=== PATIENT | male | born 1965 | race Caucasian/White ===

== ENCOUNTER 2021-08-13 14:30 | Outpatient (RCR) | payer OTHER, SELFPAY ==
--- NOTE | 2021-05-29 09:45 | PT.OPPOC ---
Physical, Occupational & Speech Therapy At [facility] Current Diagnoses Dizziness and giddiness (05/29/21) Visit Care Team Role Provider Type Omari White MD Family Provider Physician Primary Care Provider Specialty: Internal Medicine Address: [address] [place] [address], [id number] Email: [email or web address] Gustavo Johnson MD Attending Provider Physician Referring Provider Specialty: Ear, Nose, Throat Address: [address] [place] [address], [id number] Email: [email or web address] Plan Of Care PT-OP-T Assessment and Plan Start: 05/29/21 14:47 Freq: Status: Active Protocol: Document 05/29/21 09:00 DCW (Rec: 06/01/21 11:38 DCW [id number]) Physical Therapy Assessment Rehab Potential Rehabilitation Potential Fair Evaluation Complexity Number of Personal Factors/Comorbidities 1-2 Number of Body Systems Impaired 3 Clinical Presentation at Evaluation Unstable Impairments Impairments Balance,Vestibular,Visual Motor Goals Three Impairment Pt demonstrates a 6 line degradation during DVA Chcf Goal (LTG) Pt to show a line degradation during DVA testing of less than 4 lines LTG Duration 07/29/21 Two Impairment Pt does not have an appropriate home exercise program Short Term Goal (STG) Pt to report independence and compliance with an appropriate vestibular HEP STG Duration 06/29/21 One Impairment Pt complains of constant instability/visual motion sensitivity Flatlock Sewing Machine Operator Goal (LTG) Pt to report reduction in symptoms by 50% with usual daily activities LTG Duration 07/29/21 Assessment Summary Assessment Pt presents with a very unusual vestibular evaluation. Pt displays evidence of a mild right-sided vestibular loss, which is echoed in the results of his prior VNG from 2017. Additionally, he has a fairly large 6 line degradation during DVA testing , but these are largely his only positive tests. Neither of these would offer a satisfactory explanation of his complaints of constant imbalance/vertigo/visual motion. Pt will be receiving a new VNG prior to his return to vestibular rehab, which may help shed light on some increased deficiencies. Additionally, pt did note he was having a particularly low- symptom day at his evaluation, so further testing on a different day may have the potential to uncover different results. Due to pt's unilateral loss and 6 line degradation during DVA testing , pt will likely still benefit from some vestibular rehabilitation and VOR retraining. Physical Therapy Plan Frequency and Duration Frequency of Treatment 1-2x/wk Duration of Treatment Two months Plan of Care Start Date 06/01/21 Plan of Care End Date 08/01/21 Therapeutic Interventions Therapeutic Interventions Balance Training,Canalithic Repositioning,Coordination Training,Home Exercise Program ,Manual Therapy,Neuromuscular Re-education,Patient/Caregiver Education,Self-Care/Home Management,Therapeutic Exercises,Vestibular Rehabilitation Next Visit Focus/Plan Next Note Type Treatment Note Next Visit Plan Vestibular rehab, VOR/X1/X2 exercises, occulomotor training Plan of Care Dates Plan of Care Start Date 06/01/21 Plan of Care End Date 08/01/21 Electronically Signed by: Salvador Richards, PT 06/01/21 [id number] Please Sign and Return: I have reviewed this Plan of Care and certify that the skilled therapy services above are required to meet the patient?s needs. Physician Signature Date Printed Name and Credentials Clinical Instructor Signature Printed Name and Credentials
--- NOTE | 2021-05-29 09:45 | PT.OIE ---
Current Diagnoses Dizziness and giddiness (05/29/21) Visit Care Team Role Provider Type Omari White MD Family Provider Physician Primary Care Provider Specialty: Internal Medicine Address: [address] [place] [address], [id number] Email: [email or web address] Gustavo Johnson MD Attending Provider Physician Referring Provider Specialty: Ear, Nose, Throat Address: [address] [place] [address], [address] Email: [email or web address] Physical Therapy Initial Evaluation PT-OP-A Visit Information Start: 05/29/21 14:47 Freq: Status: Active Protocol: Document 05/29/21 09:00 DCW (Rec: 05/29/21 15:00 DCW [id number]) Out-Patient Physical Therapy Visit Information Visit Information Visit Type Initial Evaluation Visit Start Time 09:00 Visit Stop Time 09:50 Total Visit Minutes 50 Visit Number 1 Number of APPAREL RENTAL CLERK Visits 0 Evaluation Information Evaluation Date 05/29/21 PT-OP-B Current Condition Start: 05/29/21 14:47 Freq: Status: Active Protocol: Document 05/29/21 09:00 DCW (Rec: 05/29/21 15:00 DCW [id number]) Current Condition History of Current Condition Onset Date five year history Current Complaints constant, sustained vertigo/ imbalance History of Current Condition Pt is a 55 year old male with an unusual five year history of vestibular symptoms. Pt reports that he has just been experiencing a low-level of things moving in his vision, was diagnosed with chronic sinusitis, had surgery to clear out his sinuses in 2017, his symptoms improved but never resolved, and now over the past seven months, he has been experiencing worsening of his symptoms. Pt notes he saw a neurologist, who though he may have vertiginous migraine , gave him a lot of different meds, none of which seemed to help. Pt is also planning to undergo a VNG next week. Pt had a VNG in 2017, which showed possible mild right vestibular loss. Pt notes his severity varies, but it is always present. Admits it is a 1/10 today, but is typically more like a 4-5/10. Pt reports that over the last five years , he has only had complete relief twice, both times when skiing at higher altitude, however he has been skiing additional times with no relief. Pt reports he has not found anything that consistently improves or worsens his symptoms. Pt does note mild tinnitus in his left ear, and a recent audiogram ( 03/30/21) showed left isolated mild high-frequency sensorineural hearing loss PT-OP-C Subjective Start: 05/29/21 14:47 Freq: Status: Active Protocol: Document 05/29/21 09:00 DCW (Rec: 05/29/21 15:12 DCW [id number]) OP-PT Subjective Patient Comments Patient Comments Pt notes he can typically get through his day, his symptoms just really wear him out. Patient Questionnaires Dizziness Handicap Inventory DHI Score 68% DHI Functional Impairment 60 to 79% Impaired (Score 60- 79) PT-OP-D Balance Start: 05/29/21 14:47 Freq: Status: Active Protocol: Document 05/29/21 09:00 DCW (Rec: 05/29/21 15:12 DCW [id number]) OP-PT Balance Assessment Sitting Balance Static Sitting Balance Ability Normal Dynamic Sitting Balance Ability Normal Standing Balance Static Standing Balance Ability Normal Dynamic Standing Balance Ability Normal Balance Tests CTSIB CTSIB Position 1 30+, slight sway CTSIB Position 2 30+, mild sway CTSIB Position 3 30+, mild sway CTSIB Position 4 30+, slight sway CTSIB Position 5 30+, mild sway CTSIB Position 6 30+, moderate sway Esquivel Fall Scale Copyright Permission PT-OP-O Vestibular Start: 05/29/21 14:47 Freq: Status: Active Protocol: Document 05/29/21 09:00 DCW (Rec: 05/29/21 15:12 DCW [id number]) Vestibular Assessment Screening Tests Vestibular Artery Screen Negative Auditory Tests Vera Test Within normal limits Rinne Test Negative Air Conduction Results Equal Visual Testing Smooth Pursuits Horizontal WNL Smooth Pursuits Vertical WNL Saccades Horizontal WNL Saccades Vertical WNL Gaze Evoked Nystagmus With Fixation Negative Gaze Evoked Nystagmus Without Fixation Negative Heave Test Positive Right Thrust Head Positive Right Satish String Test WNL Convergence Test WNL DVA (Line Degradation) 6 Vasalva Test Negative Positional Testing Kari-Hallpike Negative Left,Negative Right Rolling Test Negative Left,Negative Right PT-OP-T Assessment and Plan Start: 05/29/21 14:47 Freq: Status: Active Protocol: Document 05/29/21 09:00 DCW (Rec: 06/01/21 11:38 DC [id number]) Physical Therapy Assessment Rehab Potential Rehabilitation Potential Fair Evaluation Complexity Number of Personal Factors/Comorbidities 1-2 Number of Body Systems Impaired 3 Clinical Presentation at Evaluation Unstable Impairments Impairments Balance,Vestibular,Visual Motor Goals Three Impairment Pt demonstrates a 6 line degradation during DVA Senior Care Goal (LTG) Pt to show a line degradation during DVA testing of less than 4 lines LTG Duration 07/29/21 Two Impairment Pt does not have an appropriate home exercise program Short Term Goal (STG) Pt to report independence and compliance with an appropriate vestibular HEP STG Duration 06/29/21 One Impairment Pt complains of constant instability/visual motion sensitivity Darkroom Technician Goal (LTG) Pt to report reduction in symptoms by 50% with usual daily activities LTG Duration 07/29/21 Assessment Summary Assessment Pt presents with a very unusual vestibular evaluation. Pt displays evidence of a mild right-sided vestibular loss, which is echoed in the results of his prior VNG from 2017. Additionally, he has a fairly large 6 line degradation during DVA testing , but these are largely his only positive tests. Neither of these would offer a satisfactory explanation of his complaints of constant imbalance/vertigo/visual motion. Pt will be receiving a new VNG prior to his return to vestibular rehab, which may help shed light on some increased deficiencies. Additionally, pt did note he was having a particularly low- symptom day at his evaluation, so further testing on a different day may have the potential to uncover different results. Due to pt's unilateral loss and 6 line degradation during DVA testing , pt will likely still benefit from some vestibular rehabilitation and VOR retraining. Physical Therapy Plan Frequency and Duration Frequency of Treatment 1-2x/wk Duration of Treatment Two months Plan of Care Start Date 06/01/21 Plan of Care End Date 08/01/21 Therapeutic Interventions Therapeutic Interventions Balance Training,Canalithic Repositioning,Coordination Training,Home Exercise Program ,Manual Therapy,Neuromuscular Re-education,Patient/Caregiver Education,Self-Care/Home Management,Therapeutic Exercises,Vestibular Rehabilitation Next Visit Focus/Plan Next Note Type Treatment Note Next Visit Plan Vestibular rehab, VOR/X1/X2 exercises, occulomotor training
--- NOTE | 2021-06-26 13:20 | PT.OTN ---
Current Diagnoses Dizziness and giddiness (06/26/21) Physical Therapy Treatment Note PT-OP-A Visit Information Start: 05/29/21 14:47 Freq: Status: Active Protocol: Document 06/26/21 10:30 AMB (Rec: 06/26/21 11:42 AMB [id number]) Out-Patient Physical Therapy Visit Information Visit Information Visit Type Treatment Note Visit Start Time 10:30 Visit Stop Time 11:15 Total Visit Minutes 45 Visit Number 2 PT-OP-B Current Condition Start: 05/29/21 14:47 Freq: Status: Active Protocol: Document 05/29/21 09:00 DCW (Rec: 05/29/21 15:00 DCW [id number]) Current Condition History of Current Condition Onset Date five year history Current Complaints constant, sustained vertigo/ imbalance History of Current Condition Pt is a 55 year old male with an unusual five year history of vestibular symptoms. Pt reports that he has just been experiencing a low-level of things moving in his vision, was diagnosed with chronic sinusitis, had surgery to clear out his sinuses in 2017, his symptoms improved but never resolved, and now over the past seven months, he has been experiencing worsening of his symptoms. Pt notes he saw a neurologist, who though he may have vertiginous migraine, gave him a lot of different meds, none of which seemed to help. Pt is also planning to undergo a VNG next week. Pt had a VNG in 2017, which showed possible mild right vestibular loss. Pt notes his severity varies, but it is always present. Admits it is a 1/10 today, but is typically more like a 4-5/10. Pt reports that over the last five years , he has only had complete relief twice, both times when skiing at higher altitude, however he has been skiing additional times with no relief. Pt reports he has not found anything that consistently improves or worsens his symptoms. Pt does note mild tinnitus in his left ear, and a recent audiogram ( 03/30/21) showed left isolated mild high-frequency sensorineural hearing loss PT-OP-C Subjective Start: 05/29/21 14:47 Freq: Status: Active Protocol: Document 06/26/21 10:30 AMB (Rec: 06/26/21 13:19 AMB [id number]) OP-PT Subjective Patient Comments Patient Comments Pt returns s/p new VNG showing 83% right unilateral weakness . PT-OP-D Balance Start: 05/29/21 14:47 Freq: Status: Active Protocol: Document 05/29/21 09:00 DCW (Rec: 05/29/21 15:12 DCW [id number]) OP-PT Balance Assessment Sitting Balance Static Sitting Balance Ability Normal Dynamic Sitting Balance Ability Normal Standing Balance Static Standing Balance Ability Normal Dynamic Standing Balance Ability Normal Balance Tests CTSIB CTSIB Position 1 30+, slight sway CTSIB Position 2 30+, mild sway CTSIB Position 3 30+, mild sway CTSIB Position 4 30+, slight sway CTSIB Position 5 30+, mild sway CTSIB Position 6 30+, moderate sway Esquivel Fall Scale Copyright Permission PT-OP-O Vestibular Start: 05/29/21 14:47 Freq: Status: Active Protocol: Document 05/29/21 09:00 DCW (Rec: 05/29/21 15:12 DCW [id number]) Vestibular Assessment Screening Tests Vestibular Artery Screen Negative Auditory Tests Vera Test Within normal limits Rinne Test Negative Air Conduction Results Equal Visual Testing Smooth Pursuits Horizontal WNL Smooth Pursuits Vertical WNL Saccades Horizontal WNL Saccades Vertical WNL Gaze Evoked Nystagmus With Fixation Negative Gaze Evoked Nystagmus Without Fixation Negative Heave Test Positive Right Thrust Head Positive Right Satish String Test WNL Convergence Test WNL DVA (Line Degradation) 6 Vasalva Test Negative Positional Testing Kari-Hallpike Negative Left,Negative Right Rolling Test Negative Left,Negative Right PT-OP-Q Treatments Start: 05/29/21 14:47 Freq: Status: Active Protocol: Document 06/26/21 10:30 AMB (Rec: 06/26/21 13:19 AMB [id number]) Neuro Re-Education Treatment Vestibular Rehabilitation X2 Viewing Details horizontal only Background plain Distance From Target arm length Speed slow Reps/Duration 1'x2 X1 Viewing Details horizontal and then vertical ( faster) Background plain Distance From Target 5' Speed 38 bpm Reps/Duration 1'x3 Comments hip width stance Other Activities walking with head turns Details horizontal and vertical Comments pt able to complete but feels sx, no severe veering noted PT-OP-T Assessment and Plan Start: 05/29/21 14:47 Freq: Status: Active Protocol: Document 06/26/21 10:30 AMB (Rec: 04/22/22 13:19 AMB [id number]) Physical Therapy Assessment Goals Three Impairment Pt demonstrates a 6 line degradation during DVA Circuit Judge Goal (LTG) Pt to show a line degradation during DVA testing of less than 4 lines LTG Duration 07/29/21 Two Impairment Pt does not have an appropriate home exercise program Short Term Goal (STG) Pt to report independence and compliance with an appropriate vestibular HEP STG Duration 06/29/21 One Impairment Pt complains of constant instability/visual motion sensitivity Circuit Judge Goal (LTG) Pt to report reduction in symptoms by 50% with usual daily activities LTG Duration 07/29/21 Assessment Summary Assessment Pt tolerated VOR1 and VOR2, introduced use of metronome. Let pt move head with each beat at 75bpm (rather than right and left combined making one beat). This was fast enough for the patient with horizontal VOR1, faster with vertical, slower with VOR2. Tolerated 1 minute but was challenging. Written HEP: VOR1 horizontal, VOR2, walking with horizontal and vertical head turns. Physical Therapy Plan Next Visit Focus/Plan Next Note Type Treatment Note Next Visit Plan Follow up on written HEP, progress HEP, background, stance, speed as tolerated.
--- NOTE | 2021-07-01 17:38 | PT.OTN ---
Current Diagnoses Dizziness and giddiness (07/01/21) Physical Therapy Treatment Note PT-OP-A Visit Information Start: 05/29/21 14:47 Freq: Status: Active Protocol: Document 07/01/21 16:00 DCW (Rec: 07/01/21 17:37 DCW [id number]) Out-Patient Physical Therapy Visit Information Visit Information Visit Type Treatment Note Visit Start Time 16:00 Visit Stop Time 16:45 Total Visit Minutes 50 Visit Number 3 Number of TIRE SHOP MANAGER Visits 0 Evaluation Information Evaluation Date 05/29/21 PT-OP-B Current Condition Start: 05/29/21 14:47 Freq: Status: Active Protocol: Document 05/29/21 09:00 DCW (Rec: 05/29/21 15:00 DCW [id number]) Current Condition History of Current Condition Onset Date five year history Current Complaints constant, sustained vertigo/ imbalance History of Current Condition Pt is a 55 year old male with an unusual five year history of vestibular symptoms. Pt reports that he has just been experiencing a low-level of things moving in his vision, was diagnosed with chronic sinusitis, had surgery to clear out his sinuses in 2017, his symptoms improved but never resolved, and now over the past seven months, he has been experiencing worsening of his symptoms. Pt notes he saw a neurologist, who though he may have vertiginous migraine, gave him a lot of different meds, none of which seemed to help. Pt is also planning to undergo a VNG next week. Pt had a VNG in 2017, which showed possible mild right vestibular loss. Pt notes his severity varies, but it is always present. Admits it is a 1/10 today, but is typically more like a 4-5/10. Pt reports that over the last five years , he has only had complete relief twice, both times when skiing at higher altitude, however he has been skiing additional times with no relief. Pt reports he has not found anything that consistently improves or worsens his symptoms. 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 PT-OP-D Balance Start: 05/29/21 14:47 Freq: Status: Active Protocol: Document 05/29/21 09:00 DCW (Rec: 05/29/21 15:12 [facility] [id number]) OP-PT Balance Assessment Sitting Balance Static Sitting Balance Ability Normal Dynamic Sitting Balance Ability Normal Standing Balance Static Standing Balance Ability Normal Dynamic Standing Balance Ability Normal Balance Tests CTSIB CTSIB Position 1 30+, slight sway CTSIB Position 2 30+, mild sway CTSIB Position 3 30+, mild sway CTSIB Position 4 30+, slight sway CTSIB Position 5 30+, mild sway CTSIB Position 6 30+, moderate sway Esquivel Fall Scale Copyright Permission PT-OP-O Vestibular Start: 05/29/21 14:47 Freq: Status: Active Protocol: Document 05/29/21 09:00 DCW (Rec: 05/29/21 15:12 [facility] [id number]) Vestibular Assessment Screening Tests Vestibular Artery Screen Negative Auditory Tests Vera Test Within normal limits Rinne Test Negative Air Conduction Results Equal Visual Testing Smooth Pursuits Horizontal WNL Smooth Pursuits Vertical WNL Saccades Horizontal WNL Saccades Vertical WNL Gaze Evoked Nystagmus With Fixation Negative Gaze Evoked Nystagmus Without Fixation Negative Heave Test Positive Right Thrust Head Positive Right Satish String Test WNL Convergence Test WNL DVA (Line Degradation) 6 Vasalva Test Negative Positional Testing Tovey-Hallpike Negative Left,Negative Right Rolling Test Negative Left,Negative Right PT-OP-Q Treatments Start: 05/29/21 14:47 Freq: Status: Active Protocol: Document 07/01/21 16:00 DCW (Rec: 07/01/21 17:37 SDW [id number]) Gym Equipment Shuttle Balance Red Comments WBOS (EO/EC) Staggered Neuro Re-Education Treatment Balance Activities Disco Ball Details Disco ball in dark room Comments Tolerated well, then c/o increased symptoms Dynamic Gait Comments Horizontal/Vertical head turns Tandem Ambulation Vestibular Rehabilitation Corrective Saccades Details turn eyes, then head to target Speed as tolerated Comments HEP VOR Retraining Details VOR Cancellation exercises Speed as tolerated Comments HEP X2 Viewing Details horizontal/vertical Background plain Distance From Target arm length Speed slow Comments HEP X1 Viewing Details horizontal and then vertical ( faster) Background plain Speed as tolerated Comments HEP PT-OP-T Assessment and Plan Start: 05/29/21 14:47 Freq: Status: Active Protocol: Document 07/01/21 16:00 DCW (Rec: 07/01/21 17:37 DCW [id number]) Physical Therapy Assessment Impairments Impairments Balance,Vestibular,Visual Motor Goals Three Impairment Pt demonstrates a 6 line degradation during DVA Wage Hand Goal (LTG) Pt to show a line degradation during DVA testing of less than 4 lines LTG Duration 07/29/21 Two Impairment Pt does not have an appropriate home exercise program Short Term Goal (STG) Pt to report independence and compliance with an appropriate vestibular HEP STG Duration 06/29/21 One Impairment Pt complains of constant instability/visual motion sensitivity Wage Hand Goal (LTG) Pt to report reduction in symptoms by 50% with usual daily activities LTG Duration 07/29/21 Assessment Summary Assessment With pt's self-admitted bad day, he struggled more with head turning activities, especially vertical. Discussed possibilities that caused recent results of VNG, showing more than 80% deficiency in right ear. Physical Therapy Plan Frequency and Duration Frequency of Treatment 1-2x/wk Duration of Treatment Two months Plan of Care Start Date 06/01/21 Plan of Care End Date 08/01/21 Therapeutic Interventions Therapeutic Interventions Balance Training,Canalithic Repositioning,Coordination Training,Home Exercise Program ,Manual Therapy,Neuromuscular Re-education,Patient/Caregiver Education,Self-Care/Home Management,Therapeutic Exercises,Vestibular Rehabilitation Next Visit Focus/Plan Next Note Type Treatment Note Next Visit Plan Vestibular rehab, VOR/X1/X2 exercises, oculomotor training
--- NOTE | 2021-07-08 11:18 | PT.OTN ---
Current Diagnoses Dizziness and giddiness (07/08/21) Physical Therapy Treatment Note PT-OP-A Visit Information Start: 05/29/21 14:47 Freq: Status: Active Protocol: Document 07/08/21 10:32 DCW (Rec: 07/08/21 11:18 DCW [id number]) Out-Patient Physical Therapy Visit Information Visit Information Visit Type Treatment Note Visit Start Time 10:32 Visit Stop Time 11:15 Total Visit Minutes 43 Visit Number 4 Number of FURNACE PUNCHER Visits 0 Evaluation Information Evaluation Date 05/29/21 PT-OP-B Current Condition Start: 05/29/21 14:47 Freq: Status: Active Protocol: Document 05/29/21 09:00 DCW (Rec: 05/29/21 15:00 DCW [id number]) Current Condition History of Current Condition Onset Date five year history Current Complaints constant, sustained vertigo/ imbalance History of Current Condition Pt is a 55 year old male with an unusual five year history of vestibular symptoms. Pt reports that he has just been experiencing a low-level of things moving in his vision, was diagnosed with chronic sinusitis, had surgery to clear out his sinuses in 2017, his symptoms improved but never resolved, and now over the past seven months, he has been experiencing worsening of his symptoms. Pt notes he saw a neurologist, who though he may have vertiginous migraine, gave him a lot of different meds, none of which seemed to help. Pt is also planning to undergo a VNG next week. Pt had a VNG in 2017, which showed possible mild right vestibular loss. Pt notes his severity varies, but it is always present. Admits it is a 1/10 today, but is typically more like a 4-5/10. Pt reports that over the last five years , he has only had complete relief twice, both times when skiing at higher altitude, however he has been skiing additional times with no relief. Pt reports he has not found anything that consistently improves or worsens his symptoms. 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 PT-OP-D Balance Start: 05/29/21 14:47 Freq: Status: Active Protocol: Document 05/29/21 09:00 DCW (Rec: 05/29/21 15:12 DCW [id number]) OP-PT Balance Assessment Sitting Balance Static Sitting Balance Ability Normal Dynamic Sitting Balance Ability Normal Standing Balance Static Standing Balance Ability Normal Dynamic Standing Balance Ability Normal Balance Tests CTSIB CTSIB Position 1 30+, slight sway CTSIB Position 2 30+, mild sway CTSIB Position 3 30+, mild sway CTSIB Position 4 30+, slight sway CTSIB Position 5 30+, mild sway CTSIB Position 6 30+, moderate sway Esquivel Fall Scale Copyright Permission PT-OP-O Vestibular Start: 05/29/21 14:47 Freq: Status: Active Protocol: Document 05/29/21 09:00 DCW (Rec: 05/29/21 15:12 DCW [id number]) Vestibular Assessment Screening Tests Vestibular Artery Screen Negative Auditory Tests Vera Test Within normal limits Rinne Test Negative Air Conduction Results Equal Visual Testing Smooth Pursuits Horizontal WNL Smooth Pursuits Vertical WNL Saccades Horizontal WNL Saccades Vertical WNL Gaze Evoked Nystagmus With Fixation Negative Gaze Evoked Nystagmus Without Fixation Negative Heave Test Positive Right Thrust Head Positive Right Satish String Test WNL Convergence Test WNL DVA (Line Degradation) 6 Vasalva Test Negative Positional Testing [place]-Hallpike Negative Left,Negative Right Rolling Test Negative Left,Negative Right PT-OP-Q Treatments Start: 05/29/21 14:47 Freq: Status: Active Protocol: Document 07/08/21 10:32 DCW (Rec: 07/08/21 11:18 DCW [id number]) Gym Equipment Shuttle Balance Red Comments WBOS (EO/EC) Staggered (Head Turns) Lateral weight shift Neuro Re-Education Treatment Balance Activities SLS Details SLS Comments EO/EC Turns Details EC turns to target Dynamic Gait Comments Horizontal/Vertical head turns (Metronome 120 bpm) Tandem Ambulation PT-OP-T Assessment and Plan Start: 05/29/21 14:47 Freq: Status: Active Protocol: Document 07/08/21 10:32 DCW (Rec: 07/08/21 11:18 DCW [id number]) Physical Therapy Assessment Impairments Impairments Balance,Vestibular,Visual Motor Goals Three Impairment Pt demonstrates a 6 line degradation during DVA Roll Slicing Machine Tender Goal (LTG) Pt to show a line degradation during DVA testing of less than 4 lines LTG Duration 07/29/21 Two Impairment Pt does not have an appropriate home exercise program Short Term Goal (STG) Pt to report independence and compliance with an appropriate vestibular HEP STG Duration 06/29/21 One Impairment Pt complains of constant instability/visual motion sensitivity Prison Goal (LTG) Pt to report reduction in symptoms by 50% with usual daily activities LTG Duration 07/29/21 Assessment Summary Assessment Pt did much better today with all activities, improved with head turn activities, did have a bit of difficulty with EC turns to target. Physical Therapy Plan Frequency and Duration Frequency of Treatment 1-2x/wk Duration of Treatment Two months Plan of Care Start Date 06/01/21 Plan of Care End Date 08/01/21 Therapeutic Interventions Therapeutic Interventions Balance Training,Canalithic Repositioning,Coordination Training,Home Exercise Program ,Manual Therapy,Neuromuscular Re-education,Patient/Caregiver Education,Self-Care/Home Management,Therapeutic Exercises,Vestibular Rehabilitation Next Visit Focus/Plan Next Note Type Treatment Note Next Visit Plan Vestibular rehab, VOR/X1/X2 exercises, occulomotor training
--- NOTE | 2021-07-15 09:57 | PT.OTN ---
Current Diagnoses Dizziness and giddiness (07/15/21) Physical Therapy Treatment Note PT-OP-A Visit Information Start: 05/29/21 14:47 Freq: Status: Active Protocol: Document 07/15/21 09:00 AMB (Rec: 07/15/21 09:57 AMB [id number]) Out-Patient Physical Therapy Visit Information Visit Information Visit Type Treatment Note Visit Start Time 09:01 Visit Stop Time 09:45 Total Visit Minutes 44 Visit Number 5 Number of SENIOR ANALYSIS SPECIALIST Visits 0 PT-OP-B Current Condition Start: 05/29/21 14:47 Freq: Status: Active Protocol: Document 05/29/21 09:00 DCW (Rec: 05/29/21 15:00 DCW [id number]) Current Condition History of Current Condition Onset Date five year history Current Complaints constant, sustained vertigo/ imbalance History of Current Condition Pt is a 55 year old male with an unusual five year history of vestibular symptoms. Pt reports that he has just been experiencing a low-level of things moving in his vision, was diagnosed with chronic sinusitis, had surgery to clear out his sinuses in 2017, his symptoms improved but never resolved, and now over the past seven months, he has been experiencing worsening of his symptoms. Pt notes he saw a neurologist, who though he may have vertiginous migraine, gave him a lot of different meds, none of which seemed to help. Pt is also planning to undergo a VNG next week. Pt had a VNG in 2017, which showed possible mild right vestibular loss. Pt notes his severity varies, but it is always present. Admits it is a 1/10 today, but is typically more like a 4-5/10. Pt reports that over the last five years , he has only had complete relief twice, both times when skiing at higher altitude, however he has been skiing additional times with no relief. Pt reports he has not found anything that consistently improves or worsens his symptoms. Pt does note mild tinnitus in his left ear, and a recent audiogram ( 03/30/21) showed left isolated mild high-frequency sensorineural hearing loss PT-OP-C Subjective Start: 05/29/21 14:47 Freq: Status: Active Protocol: Document 07/15/21 09:00 AMB (Rec: 07/15/21 09:57 AMB [id number]) OP-PT Subjective Patient Comments Patient Comments Pt notes he was ok after last visit, this week has been ok, yesterday felt a little extra allergy. PT-OP-D Balance Start: 05/29/21 14:47 Freq: Status: Active Protocol: Document 05/29/21 09:00 DCW (Rec: 05/29/21 15:12 DCW [id number]) OP-PT Balance Assessment Sitting Balance Static Sitting Balance Ability Normal Dynamic Sitting Balance Ability Normal Standing Balance Static Standing Balance Ability Normal Dynamic Standing Balance Ability Normal Balance Tests CTSIB CTSIB Position 1 30+, slight sway CTSIB Position 2 30+, mild sway CTSIB Position 3 30+, mild sway CTSIB Position 4 30+, slight sway CTSIB Position 5 30+, mild sway CTSIB Position 6 30+, moderate sway Esquivel Fall Scale Copyright Permission PT-OP-O Vestibular Start: 05/29/21 14:47 Freq: Status: Active Protocol: Document 05/29/21 09:00 DCW (Rec: 05/29/21 15:12 DCW [id number]) Vestibular Assessment Screening Tests Vestibular Artery Screen Negative Auditory Tests Vera Test Within normal limits Rinne Test Negative Air Conduction Results Equal Visual Testing Smooth Pursuits Horizontal WNL Smooth Pursuits Vertical WNL Saccades Horizontal WNL Saccades Vertical WNL Gaze Evoked Nystagmus With Fixation Negative Gaze Evoked Nystagmus Without Fixation Negative Heave Test Positive Right Thrust Head Positive Right Satish String Test WNL Convergence Test WNL DVA (Line Degradation) 6 Vasalva Test Negative Positional Testing [place]-Hallpike Negative Left,Negative Right Rolling Test Negative Left,Negative Right PT-OP-Q Treatments Start: 05/29/21 14:47 Freq: Status: Active Protocol: Document 07/15/21 09:00 AMB (Rec: 07/15/21 09:57 AMB [id number]) Gym Equipment Shuttle Balance Red Comments WBOS (head turns -vert/horiz) Staggered (Head Turns) Lateral weight shift Neuro Re-Education Treatment Balance Activities Foam Details modified tandem Surface blue foam Comments with dual task and head turns SLS Details SLS Comments EO/EC Vestibular Rehabilitation X1 Viewing Details horizontal and then vertical ( faster) Background plain Speed as tolerated Comments HEP Other Activities 3 step and bow Details with 2 slow head turns Comments pt with LOB that he was able to independently recover from, did cue decreased stride length to make exercise easier 3 step SLS Reps/Duration 3 min Comments with head turns, in hallway PT-OP-T Assessment and Plan Start: 05/29/21 14:47 Freq: Status: Active Protocol: Document 07/15/21 09:00 AMB (Rec: 07/15/21 09:57 AMB [id number]) Physical Therapy Assessment Goals Three Impairment Pt demonstrates a 6 line degradation during DVA Mcc Goal (LTG) Pt to show a line degradation during DVA testing of less than 4 lines LTG Duration 07/29/21 Two Impairment Pt does not have an appropriate home exercise program Short Term Goal (STG) Pt to report independence and compliance with an appropriate vestibular HEP STG Duration 06/29/21 One Impairment Pt complains of constant instability/visual motion sensitivity Watch And Clock Repairer Goal (LTG) Pt to report reduction in symptoms by 50% with usual daily activities LTG Duration 07/29/21 Assessment Summary Assessment Pt most challenged by 3 step bow HT exercises. EC SLS is also challenging. Added 3 step SLS and 3 step bow to HEP . discussed pt's love of [employer]. Physical Therapy Plan Next Visit Focus/Plan Next Note Type Treatment Note Next Visit Plan Vestibular rehab, VOR/X1/X2 exercises, occulomotor training
--- NOTE | 2021-07-22 15:59 | PT.OTN ---
Current Diagnoses Dizziness and giddiness (07/22/21) Physical Therapy Treatment Note PT-OP-A Visit Information Start: 05/29/21 14:47 Freq: Status: Active Protocol: Document 07/22/21 08:21 AMB (Rec: 07/22/21 09:06 AMB [id number]) Out-Patient Physical Therapy Visit Information Visit Information Visit Type Treatment Note Visit Start Time 08:20 Visit Stop Time 09:00 Total Visit Minutes 40 Visit Number 6 PT-OP-B Current Condition Start: 05/29/21 14:47 Freq: Status: Active Protocol: Document 05/29/21 09:00 DCW (Rec: 05/29/21 15:00 DCW [id number]) Current Condition History of Current Condition Onset Date five year history Current Complaints constant, sustained vertigo/ imbalance History of Current Condition Pt is a 55 year old male with an unusual five year history of vestibular symptoms. Pt reports that he has just been experiencing a low-level of things moving in his vision, was diagnosed with chronic sinusitis, had surgery to clear out his sinuses in 2017, his symptoms improved but never resolved, and now over the past seven months, he has been experiencing worsening of his symptoms. Pt notes he saw a neurologist, who though he may have vertiginous migraine, gave him a lot of different meds, none of which seemed to help. Pt is also planning to undergo a VNG next week. Pt had a VNG in 2017, which showed possible mild right vestibular loss. Pt notes his severity varies, but it is always present. Admits it is a 1/10 today, but is typically more like a 4-5/10. Pt reports that over the last five years , he has only had complete relief twice, both times when skiing at higher altitude, however he has been skiing additional times with no relief. Pt reports he has not found anything that consistently improves or worsens his symptoms. Pt does note mild tinnitus in his left ear, and a recent audiogram ( 03/30/21) showed left isolated mild high-frequency sensorineural hearing loss PT-OP-C Subjective Start: 05/29/21 14:47 Freq: Status: Active Protocol: Document 07/22/21 08:15 AMB (Rec: 07/22/21 15:59 AMB [id number]) OP-PT Subjective Patient Comments Patient Comments Pt reports he has been doing HEP 2-3x/day. PT-OP-D Balance Start: 05/29/21 14:47 Freq: Status: Active Protocol: Document 05/29/21 09:00 DCW (Rec: 05/29/21 15:12 DCW [id number]) OP-PT Balance Assessment Sitting Balance Static Sitting Balance Ability Normal Dynamic Sitting Balance Ability Normal Standing Balance Static Standing Balance Ability Normal Dynamic Standing Balance Ability Normal Balance Tests CTSIB CTSIB Position 1 30+, slight sway CTSIB Position 2 30+, mild sway CTSIB Position 3 30+, mild sway CTSIB Position 4 30+, slight sway CTSIB Position 5 30+, mild sway CTSIB Position 6 30+, moderate sway Esquivel Fall Scale Copyright Permission PT-OP-O Vestibular Start: 05/29/21 14:47 Freq: Status: Active Protocol: Document 05/29/21 09:00 DCW (Rec: 05/29/21 15:12 DCW [id number]) Vestibular Assessment Screening Tests Vestibular Artery Screen Negative Auditory Tests Vera Test Within normal limits Rinne Test Negative Air Conduction Results Equal Visual Testing Smooth Pursuits Horizontal WNL Smooth Pursuits Vertical WNL Saccades Horizontal WNL Saccades Vertical WNL Gaze Evoked Nystagmus With Fixation Negative Gaze Evoked Nystagmus Without Fixation Negative Heave Test Positive Right Thrust Head Positive Right Satish String Test WNL Convergence Test WNL DVA (Line Degradation) 6 Vasalva Test Negative Positional Testing [place]-Hallpike Negative Left,Negative Right Rolling Test Negative Left,Negative Right PT-OP-Q Treatments Start: 05/29/21 14:47 Freq: Status: Active Protocol: Document 07/22/21 08:15 AMB (Rec: 07/22/21 15:59 AMB [id number]) Neuro Re-Education Treatment Balance Activities Foam Details modified tandem Surface blue foam Comments with dual task and head turns SLS Details SLS Comments EO/EC Vestibular Rehabilitation X2 Viewing Details horizontal/vertical Background plain Distance From Target arm length Speed slow Comments HEP X1 Viewing Details horizontal and then vertical ( faster) Background plain Speed as tolerated Comments HEP Other Activities 3 step and bow Details with 2 slow head turns Comments better today 3 step SLS Reps/Duration 3 min Comments with head turns, in hallway walking with head turns Details horizontal and vertical Comments pt able to complete but feels sx, no severe veering noted PT-OP-T Assessment and Plan Start: 05/29/21 14:47 Freq: Status: Active Protocol: Document 07/22/21 08:15 AMB (Rec: 07/22/21 15:59 AMB [id number]) Physical Therapy Assessment Goals Three Impairment Pt demonstrates a 6 line degradation during DVA First Aid Trainer Goal (LTG) Pt to show a line degradation during DVA testing of less than 4 lines LTG Duration 07/29/21 Two Impairment Pt does not have an appropriate home exercise program Short Term Goal (STG) Pt to report independence and compliance with an appropriate vestibular HEP STG Duration 06/29/21 One Impairment Pt complains of constant instability/visual motion sensitivity Fdc Goal (LTG) Pt to report reduction in symptoms by 50% with usual daily activities LTG Duration 07/29/21 Assessment Summary Assessment Significant time spent today on research regarding vestibular dysfunction, assisted prognosis. Encouraged pt to check out [email or web address], as he has been looking at meta -analyses but having difficulty getting access to primary research. Physical Therapy Plan Next Visit Focus/Plan Next Note Type Treatment Note Next Visit Plan Vestibular rehab, VOR/X1/X2 exercises, occulomotor training
--- NOTE | 2021-07-30 16:50 | PT.OTN ---
Current Diagnoses Dizziness and giddiness (07/30/21) Physical Therapy Treatment Note PT-OP-A Visit Information Start: 05/29/21 14:47 Freq: Status: Active Protocol: Document 07/30/21 16:00 DCW (Rec: 07/30/21 16:50 DCW [id number]) Out-Patient Physical Therapy Visit Information Visit Information Visit Type Treatment Note Visit Start Time 16:00 Visit Stop Time 16:45 Total Visit Minutes 45 Visit Number 7 Number of AUTOMOTIVE CUSTOMER EXPERIENCE ADVISOR Visits 0 Evaluation Information Evaluation Date 05/29/21 PT-OP-B Current Condition Start: 05/29/21 14:47 Freq: Status: Active Protocol: Document 05/29/21 09:00 DCW (Rec: 05/29/21 15:00 DCW [id number]) Current Condition History of Current Condition Onset Date five year history Current Complaints constant, sustained vertigo/ imbalance History of Current Condition Pt is a 55 year old male with an unusual five year history of vestibular symptoms. Pt reports that he has just been experiencing a low-level of things moving in his vision, was diagnosed with chronic sinusitis, had surgery to clear out his sinuses in 2017, his symptoms improved but never resolved, and now over the past seven months, he has been experiencing worsening of his symptoms. Pt notes he saw a neurologist, who though he may have vertiginous migraine, gave him a lot of different meds, none of which seemed to help. Pt is also planning to undergo a VNG next week. Pt had a VNG in 2017, which showed possible mild right vestibular loss. Pt notes his severity varies, but it is always present. Admits it is a 1/10 today, but is typically more like a 4-5/10. Pt reports that over the last five years , he has only had complete relief twice, both times when skiing at higher altitude, however he has been skiing additional times with no relief. Pt reports he has not found anything that consistently improves or worsens his symptoms. Pt does note mild tinnitus in his left ear, and a recent audiogram ( 03/30/21) showed left isolated mild high-frequency sensorineural hearing loss PT-OP-C Subjective Start: 05/29/21 14:47 Freq: Status: Active Protocol: Document 07/30/21 16:00 DCW (Rec: 07/30/21 16:50 DCW [id number]) OP-PT Subjective Patient Comments Patient Comments Feeling about the same. Every once and a while it's worse than other times. PT-OP-D Balance Start: 05/29/21 14:47 Freq: Status: Active Protocol: Document 05/29/21 09:00 DCW (Rec: 05/29/21 15:12 DCW [id number]) OP-PT Balance Assessment Sitting Balance Static Sitting Balance Ability Normal Dynamic Sitting Balance Ability Normal Standing Balance Static Standing Balance Ability Normal Dynamic Standing Balance Ability Normal Balance Tests CTSIB CTSIB Position 1 30+, slight sway CTSIB Position 2 30+, mild sway CTSIB Position 3 30+, mild sway CTSIB Position 4 30+, slight sway CTSIB Position 5 30+, mild sway CTSIB Position 6 30+, moderate sway Esquivel Fall Scale Copyright Permission PT-OP-O Vestibular Start: 05/29/21 14:47 Freq: Status: Active Protocol: Document 07/30/21 16:00 DCW (Rec: 07/30/21 16:50 DCW [id number]) Vestibular Assessment Visual Testing DVA (Line Degradation) 6 PT-OP-Q Treatments Start: 05/29/21 14:47 Freq: Status: Active Protocol: Document 07/30/21 16:00 DCW (Rec: 07/30/21 16:50 DCW [id number]) Gym Equipment Shuttle Balance Red Comments WBOS (head turns -vert/horiz) Staggered (Head Turns) Lateral weight shift Neuro Re-Education Treatment Other Activities 3 step and bow Details with 2 slow head turns Comments better today walking with head turns Details horizontal and vertical Comments pt able to complete but feels sx, no severe veering noted PT-OP-T Assessment and Plan Start: 05/29/21 14:47 Freq: Status: Active Protocol: Document 07/30/21 16:00 DCW (Rec: 07/30/21 16:50 DCW [id number]) Physical Therapy Assessment Goals Three Impairment Pt demonstrates a 6 line degradation during DVA Linen Room Custodian Goal (LTG) Pt to show a line degradation during DVA testing of less than 4 lines LTG Duration 08/13/21 Two Impairment Pt does not have an appropriate home exercise program Short Term Goal (STG) Pt to report independence and compliance with an appropriate vestibular HEP STG Duration Met One Impairment Pt complains of constant instability/visual motion sensitivity Linen Room Custodian Goal (LTG) Pt to report reduction in symptoms by 50% with usual daily activities LTG Duration 08/13/21 Assessment Summary Assessment Still demonstrates 6 line DVA degradation, pt feels there has been minimal change. Pt does find PT helpful for information and HEP, feels like he would benefit from attending last two scheduled visits. Pt is interested in getting referral for a different ENT for a second opinion. Physical Therapy Plan Frequency and Duration Frequency of Treatment 1-2x/wk Duration of Treatment One month Plan of Care Start Date 07/30/21 Plan of Care End Date 08/30/21 Next Visit Focus/Plan Next Note Type Treatment Note Next Visit Plan Vestibular rehab, VOR/X1/X2 exercises, occulomotor training
--- NOTE | 2021-07-30 16:50 | PT.OPPOC ---
Physical, Occupational & Speech Therapy At [facility] Current Diagnoses Dizziness and giddiness (07/30/21) Visit Care Team Role Provider Type Omari White MD Family Provider Physician Primary Care Provider Specialty: Internal Medicine Address: [address] [place] [id number] Email: [email or web address] Gustavo Johnson MD Attending Provider Physician Referring Provider Specialty: Ear, Nose, Throat Address: [address] [place] [address], [id number] Email: [email or web address] Plan Of Care PT-OP-T Assessment and Plan Start: 05/29/21 14:47 Freq: Status: Active Protocol: Document 07/30/21 16:00 DCW (Rec: 07/30/21 16:50 DCW [id number]) Physical Therapy Assessment Goals Three Impairment Pt demonstrates a 6 line degradation during DVA Miter Saw Operator Goal (LTG) Pt to show a line degradation during DVA testing of less than 4 lines LTG Duration 08/13/21 Two Impairment Pt does not have an appropriate home exercise program Short Term Goal (STG) Pt to report independence and compliance with an appropriate vestibular HEP STG Duration Met One Impairment Pt complains of constant instability/visual motion sensitivity Miter Saw Operator Goal (LTG) Pt to report reduction in symptoms by 50% with usual daily activities LTG Duration 08/13/21 Assessment Summary Assessment Still demonstrates 6 line DVA degradation, pt feels there has been minimal change. Pt does find PT helpful for information and HEP, feels like he would benefit from attending last two scheduled visits. Pt is interested in getting referral for a different ENT for a second opinion. Physical Therapy Plan Frequency and Duration Frequency of Treatment 1-2x/wk Duration of Treatment One month Plan of Care Start Date 07/30/21 Plan of Care End Date 08/30/21 Next Visit Focus/Plan Next Note Type Treatment Note Next Visit Plan Vestibular rehab, VOR/X1/X2 exercises, occulomotor training Plan of Care Dates Plan of Care Start Date 07/30/21 Plan of Care End Date 08/30/21 Electronically Signed by: Salvador Richards, PT 07/30/21 [id number] If you are in agreement with this Plan of Care, please return a signed and dated copy. I have reviewed this Plan of Care and certify that the skilled therapy services above are required to meet the patient?s needs. Physician Signature Date Printed Name and Credentials Clinical Instructor Signature Printed Name and Credentials
--- NOTE | 2021-08-06 08:17 | PT.OTN ---
Current Diagnoses Dizziness and giddiness (08/06/21) Physical Therapy Treatment Note PT-OP-A Visit Information Start: 05/29/21 14:47 Freq: Status: Active Protocol: Document 08/06/21 07:38 AMB (Rec: 08/06/21 08:17 AMB [id number]) Out-Patient Physical Therapy Visit Information Visit Information Visit Type Treatment Note Visit Start Time 07:30 Visit Stop Time 08:15 Total Visit Minutes 45 Visit Number 8 PT-OP-B Current Condition Start: 05/29/21 14:47 Freq: Status: Active Protocol: Document 05/29/21 09:00 DCW (Rec: 05/29/21 15:00 DCW [id number]) Current Condition History of Current Condition Onset Date five year history Current Complaints constant, sustained vertigo/ imbalance History of Current Condition Pt is a 55 year old male with an unusual five year history of vestibular symptoms. Pt reports that he has just been experiencing a low-level of things moving in his vision, was diagnosed with chronic sinusitis, had surgery to clear out his sinuses in 2017, his symptoms improved but never resolved, and now over the past seven months, he has been experiencing worsening of his symptoms. Pt notes he saw a neurologist, who though he may have vertiginous migraine, gave him a lot of different meds, none of which seemed to help. Pt is also planning to undergo a VNG next week. Pt had a VNG in 2017, which showed possible mild right vestibular loss. Pt notes his severity varies, but it is always present. Admits it is a 1/10 today, but is typically more like a 4-5/10. Pt reports that over the last five years , he has only had complete relief twice, both times when skiing at higher altitude, however he has been skiing additional times with no relief. Pt reports he has not found anything that consistently improves or worsens his symptoms. Pt does note mild tinnitus in his left ear, and a recent audiogram ( 03/30/21) showed left isolated mild high-frequency sensorineural hearing loss PT-OP-C Subjective Start: 05/29/21 14:47 Freq: Status: Active Protocol: Document 08/06/21 07:38 AMB (Rec: 08/06/21 08:17 AMB [id number]) OP-PT Subjective Patient Comments Patient Comments Had a busy day yesterday going down to [place], but did well with it, did not notice increased sx. PT-OP-D Balance Start: 05/29/21 14:47 Freq: Status: Active Protocol: Document 05/29/21 09:00 DCW (Rec: 05/29/21 15:12 DCW [id number]) OP-PT Balance Assessment Sitting Balance Static Sitting Balance Ability Normal Dynamic Sitting Balance Ability Normal Standing Balance Static Standing Balance Ability Normal Dynamic Standing Balance Ability Normal Balance Tests CTSIB CTSIB Position 1 30+, slight sway CTSIB Position 2 30+, mild sway CTSIB Position 3 30+, mild sway CTSIB Position 4 30+, slight sway CTSIB Position 5 30+, mild sway CTSIB Position 6 30+, moderate sway Esquivel Fall Scale Copyright Permission PT-OP-O Vestibular Start: 05/29/21 14:47 Freq: Status: Active Protocol: Document 07/30/21 16:00 DCW (Rec: 07/30/21 16:50 DCW [id number]) Vestibular Assessment Visual Testing DVA (Line Degradation) 6 PT-OP-Q Treatments Start: 05/29/21 14:47 Freq: Status: Active Protocol: Document 08/06/21 07:38 AMB (Rec: 08/06/21 08:17 AMB [id number]) Gym Equipment Shuttle Balance Red Comments WBOS (head turns -vert/horiz) Staggered (Head Turns) Lateral weight shift VOR Neuro Re-Education Treatment Balance Activities Foam Details modified tandem Surface blue foam Comments with dual task and head turns, EO/EC Vestibular Rehabilitation X2 Viewing Details horizontal/vertical Background plain Distance From Target arm length Speed slow Comments HEP X1 Viewing Details horizontal and then vertical ( faster) Background plain Speed as tolerated Comments HEP PT-OP-T Assessment and Plan Start: 05/29/21 14:47 Freq: Status: Active Protocol: Document 08/06/21 07:38 AMB (Rec: 08/06/21 08:17 AMB [id number]) Physical Therapy Assessment Goals Three Impairment Pt demonstrates a 6 line degradation during DVA Manager Printing Goal (LTG) Pt to show a line degradation during DVA testing of less than 4 lines LTG Duration 08/13/21 Two Impairment Pt does not have an appropriate home exercise program Short Term Goal (STG) Pt to report independence and compliance with an appropriate vestibular HEP STG Duration Met One Impairment Pt complains of constant instability/visual motion sensitivity Fci Goal (LTG) Pt to report reduction in symptoms by 50% with usual daily activities LTG Duration 08/13/21 Assessment Summary Assessment Pt feels like exercises are getting a little better. MOwing the lawn does seem to trigger sx, not sure about allergies vs just the vibration of the machine. Next visit will be last. Physical Therapy Plan Next Visit Focus/Plan Next Note Type Discharge Summary Next Visit Plan Vestibular rehab, VOR/X1/X2 exercises, occulomotor training
--- NOTE | 2021-08-13 15:15 | PT.OTN ---
Current Diagnoses Dizziness and giddiness (08/13/21) Physical Therapy Treatment Note PT-OP-A Visit Information Start: 05/29/21 14:47 Freq: Status: Active Protocol: Document 08/13/21 14:30 DCW (Rec: 08/13/21 15:15 DCW [id number]) Out-Patient Physical Therapy Visit Information Visit Information Visit Type Treatment Note Visit Start Time 14:30 Visit Stop Time 15:15 Total Visit Minutes 45 Visit Number 9 Number of HAND CLOTH CUTTER Visits 0 Evaluation Information Evaluation Date 05/29/21 PT-OP-B Current Condition Start: 05/29/21 14:47 Freq: Status: Active Protocol: Document 05/29/21 09:00 DCW (Rec: 05/29/21 15:00 DCW [id number]) Current Condition History of Current Condition Onset Date five year history Current Complaints constant, sustained vertigo/ imbalance History of Current Condition Pt is a 55 year old male with an unusual five year history of vestibular symptoms. Pt reports that he has just been experiencing a low-level of things moving in his vision, was diagnosed with chronic sinusitis, had surgery to clear out his sinuses in 2017, his symptoms improved but never resolved, and now over the past seven months, he has been experiencing worsening of his symptoms. Pt notes he saw a neurologist, who though he may have vertiginous migraine, gave him a lot of different meds, none of which seemed to help. Pt is also planning to undergo a VNG next week. Pt had a VNG in 2017, which showed possible mild right vestibular loss. Pt notes his severity varies, but it is always present. Admits it is a 1/10 today, but is typically more like a 4-5/10. Pt reports that over the last five years , he has only had complete relief twice, both times when skiing at higher altitude, however he has been skiing additional times with no relief. Pt reports he has not found anything that consistently improves or worsens his symptoms. Pt does note mild tinnitus in his left ear, and a recent audiogram ( 03/30/21) showed left isolated mild high-frequency sensorineural hearing loss PT-OP-C Subjective Start: 05/29/21 14:47 Freq: Status: Active Protocol: Document 08/13/21 14:30 DCW (Rec: 08/13/21 15:15 DCW [id number]) OP-PT Subjective Patient Comments Patient Comments Not terrible today, not great . Just a little wobbly today. PT-OP-D Balance Start: 05/29/21 14:47 Freq: Status: Active Protocol: Document 05/29/21 09:00 DCW (Rec: 05/29/21 15:12 DCW [id number]) OP-PT Balance Assessment Sitting Balance Static Sitting Balance Ability Normal Dynamic Sitting Balance Ability Normal Standing Balance Static Standing Balance Ability Normal Dynamic Standing Balance Ability Normal Balance Tests CTSIB CTSIB Position 1 30+, slight sway CTSIB Position 2 30+, mild sway CTSIB Position 3 30+, mild sway CTSIB Position 4 30+, slight sway CTSIB Position 5 30+, mild sway CTSIB Position 6 30+, moderate sway Esquivel Fall Scale Copyright Permission PT-OP-O Vestibular Start: 05/29/21 14:47 Freq: Status: Active Protocol: Document 07/30/21 16:00 DCW (Rec: 07/30/21 16:50 DCW [id number]) Vestibular Assessment Visual Testing DVA (Line Degradation) 6 PT-OP-Q Treatments Start: 05/29/21 14:47 Freq: Status: Active Protocol: Document 08/13/21 14:30 DCW (Rec: 08/13/21 15:15 DCW [id number]) Gym Equipment Shuttle Balance Red Comments WBOS (head turns -vert/horiz) Staggered (Head Turns) Lateral weight shift VOR Manual Therapy Treatment Soft Tissue Mobilization 1 Body Location UP, Cervical paraspinals Manual Traction Cervical Body Position Supine Neuro Re-Education Treatment Other Activities 3 step and bow Details with 2 slow head turns walking with head turns Details horizontal and vertical Reps/Duration 120 bpm Comments pt able to complete, minimal sunjective sx, mild veering noted PT-OP-T Assessment and Plan Start: 05/29/21 14:47 Freq: Status: Active Protocol: Document 08/13/21 14:30 DCW (Rec: 08/13/21 15:15 DCW [id number]) Physical Therapy Assessment Goals Three Impairment Pt demonstrates a 6 line degradation during DVA Warehouse Order Puller Goal (LTG) Pt to show a line degradation during DVA testing of less than 4 lines LTG Duration 08/13/21 Two Impairment Pt does not have an appropriate home exercise program Short Term Goal (STG) Pt to report independence and compliance with an appropriate vestibular HEP STG Duration Met One Impairment Pt complains of constant instability/visual motion sensitivity Warehouse Order Puller Goal (LTG) Pt to report reduction in symptoms by 50% with usual daily activities LTG Duration 08/13/21 Assessment Summary Assessment Pt noted today a worsening crick in his neck, which seemed to worsen symptoms. Worked some on STM to help loosen cervical musculature, pt felt better afterward, but did not seem to impact his dizziness/imbalance symptoms. Pt is working on getting referral to vestibular clinic, hoping to figure out once and for all the specific cause for his symptoms. Feels comfortable with HEP for now, will discharge from vestibular therapy at this time. Physical Therapy Plan Frequency and Duration Frequency of Treatment 1-2x/wk Duration of Treatment One month Plan of Care Start Date 07/30/21 Plan of Care End Date 08/30/21 Next Visit Focus/Plan Next Note Type Discharge Summary
== END 2021-10-26 13:17 ==
LOC: PHYS 14:30
PROVIDERS: Family Provider Internal Medicine; PCP Internal Medicine; Referring Provider Otolaryngology; Visit Provider Otolaryngology
DX: R42 Dizziness and giddiness (principal)
CPT/HCPCS: 97112; 97140; 97162

== ENCOUNTER → 2022-03-10 14:31 | Outpatient (CLI) | payer OTHER, SELFPAY ==
[2022-03-10 15:20] LABS: Hematocrit 42.5 % (41-53); Hemoglobin 14.5 g/dL (13.5-17.5); Mean Corpuscular HGB Conc 34.1 % (30-36); Mean Corpuscular Hemoglobin 31.2 PG (26-34); Mean Corpuscular Volume 91.4 fL (80-100); Platelet Count 213 X10^3/uL (150-400); Red Blood Cell Count 4.65 X10^6/uL (4.5-5.9); Red Cell Distribution Width 13.6 % (11.6-14.8); White Blood Cell Count 6.1 X10^3/uL (4.5-11.0)
[2022-03-10 15:22] LABS: Alanine Aminotransferase 25 IU/L (<50); Albumin 4.4 g/dL (3.5-5.0); Albumin Globulin Ratio 1.4 (1.0-2.8); Alkaline Phosphatase 46 U/L (38-126); Aspartate Aminotransferase 19 IU/L (17-59); BUN Creatinine Ratio 12.4 (6-22); Bilirubin Total 1.2 mg/dL (0.2-1.3); Blood Urea Nitrogen 14 mg/dL (9-20); Calcium 8.8 mg/dL (8.4-10.2); Carbon Dioxide 28 mmol/L (22-32); Chloride 102 mmol/L (98-107); Cholesterol 200 mg/dL (140-199); Estimated Glomerular Filt Rate > 60 mL/min (>60); Globulin 3.2 g/dL (1.7-4.1); Glucose 86 mg/dL (70-100); HDL Cholesterol 69 mg/dL (40-60); HEMOLYSIS < 15 (0-50); LDL Cholesterol Calculated 98 mg/dL (<100); Potassium 3.8 mmol/L (3.4-5.1); Sodium 140 mmol/L (137-145); Total Protein 7.6 g/dL (6.3-8.2); Triglycerides 164 mg/dL (35-150)
[2022-03-10 15:46] LABS: Prostate Specific Antigen 3.44 ng/mL (0.10-4.00)
[2022-03-10 15:48] LABS: TSH w/ Reflex to FT4 0.69 uIU/mL (0.47-4.68)
== END ==
PROVIDERS: Family Provider Internal Medicine; PCP Internal Medicine; Referring Provider Internal Medicine; Visit Provider Internal Medicine
DX: Z00.00 Encounter for general adult medical examination without abnormal findings (principal); G43.809 Other migraine, not intractable, without status migrainosus; R97.20 Elevated prostate specific antigen [PSA]
CPT/HCPCS: 36415; 80053; 80061; 84153; 84443; 85027

== ENCOUNTER → 2022-04-30 13:54 | Outpatient (CLI) | payer OTHER, SELFPAY ==
[2022-04-30 15:24] LABS: Appearance Urine UA CLEAR; Bilirubin Urine UA NEGATIVE (NEGATIVE); Color Urine UA YELLOW; Glucose Urine UA NEGATIVE (Negative); Ketones Urine UA NEGATIVE (NEGATIVE); Leukocyte Esterase Urine UA NEGATIVE (NEGATIVE); Nitrite Urine UA NEGATIVE (Negative); Occult Blood Urine UA NEGATIVE (Negative); Protein Urine UA NEGATIVE (Negative); Specific Gravity Urine UA <=1.005 (1.000-1.035); Urobilinogen Urine UA 0.2 E.U./dL (0.2); pH Urine UA 5.5 (4.5-8.0)
[2022-04-30 15:50] LABS: Bacteria Urine None Seen; Culture Indicated Urine Cult Not Indicated; RBC Urine None Seen (0-5/HPF); Squamous Epithelial Cell Urine None Seen (0-5/HPF); WBC Urine None Seen (0-5/HPF)
== END ==
PROVIDERS: Family Provider Internal Medicine; PCP Internal Medicine; Referring Provider Internal Medicine; Visit Provider Internal Medicine
DX: N13.8 Other obstructive and reflux uropathy (principal); N40.1 Benign prostatic hyperplasia with lower urinary tract symptoms; R97.20 Elevated prostate specific antigen [PSA]
CPT/HCPCS: 81001

== ENCOUNTER 2022-07-09 13:30 | Outpatient (RCR) | payer OTHER, SELFPAY ==
--- NOTE | 2022-03-16 16:00 | PT.OPPOC ---
Physical, Occupational & Speech Therapy At [facility] Current Diagnoses Migraine with aura, not intractable, without status migrainosus (03/16/22) Vestibular neuronitis, right ear (03/16/22) Unspecified disorder of vestibular function, right ear (03/16/22) Visit Care Team Role Provider Type Omari White MD Family Provider Physician Primary Care Provider Specialty: Internal Medicine Address: [address] [place] [address], [phone] Email: [email or web address] Juan Francisco James Attending Provider Non-Staff Referring Provider Specialty: Otolaryngology (ENT) Address: [address], [address], [place], [address] Email: Plan Of Care PT-OP-T Assessment and Plan Start: 03/13/22 09:48 Freq: Status: Active Protocol: Document 03/16/22 14:30 AMB (Rec: 03/29/22 11:01 AMB [id number]) Physical Therapy Assessment Rehab Potential Rehabilitation Potential Good Evaluation Complexity Number of Personal Factors/Comorbidities 0 Number of Body Systems Impaired 1-2 Clinical Presentation at Evaluation Stable Impairments Impairments Vestibular Goals Two Impairment Dizziness Short Term Goal (STG) Justen will report baseline dizziness as 3/10 or less. STG Duration 6 weeks Oil Sprayer Goal (LTG) Pt will look up and down while walking without an increase in his baseline dizziness. LTG Duration 12 weeks One Impairment HEP Short Term Goal (STG) Justen will be independent and consistent with a progressive vestibular HEP. STG Duration 6 weeks Oil Sprayer Goal (LTG) Justen will tolerate 1 minute of VOR exercises without an increase in his baseline dizziness. LTG Duration 12 weeks Assessment Summary Assessment Justen attends physical therapy with 5-6 year history of feeling dizziness. No real triggers that he has been able to figure out, although does get more dizzy with vestibular exercises from previous vestibular therapy. Notes dizziness continues to be around 4-5/10 although it can get worse. Has had multiple VNGs which showed vestibular loss. DVA and thrust test were positive for impaired vestibular function. Pt has had previous vestibular therapy with limited benefit, challenging as he struggles to know what triggers his symptoms. Discussed vestibular migraine at length. Pt will benefit from physical therapy to help manage his sx and vestibular deficits. Physical Therapy Plan Frequency and Duration Frequency of Treatment 1x/Week Duration of treatment (weeks) 12 Plan of Care Start Date 03/16/22 Plan of Care End Date 06/08/22 Therapeutic Interventions Therapeutic Interventions Balance Training,Home Exercise Program,Manual Therapy, Neuromuscular Re-education, Self-Care/Home Management, Therapeutic Activities, Therapeutic Exercises, Vestibular Rehabilitation Next Visit Focus/Plan Next Note Type Treatment Note Next Visit Plan Revisit VOR frequency, intensity, duration Plan of Care Dates Plan of Care Start Date 03/16/22 Plan of Care End Date 06/08/22 Electronically Signed by: Veronica Morrison, PT 03/29/22 [id number] If you are in agreement with this Plan of Care, please return a signed and dated copy. I have reviewed this Plan of Care and certify that the skilled therapy services above are required to meet the patient?s needs. Physician Signature Date Printed Name and Credentials Clinical Instructor Signature Printed Name and Credentials
--- NOTE | 2022-03-16 16:00 | PT.OIE ---
Current Diagnoses Migraine with aura, not intractable, without status migrainosus (03/16/22) Vestibular neuronitis, right ear (03/16/22) Unspecified disorder of vestibular function, right ear (03/16/22) Past Medical History (Last Updated 03/10/22 @ 14:00 by Omari White MD) Encounter for general adult medical examination without abnormal findings Rising PSA level Vertigo (~2015) Vestibular migraine Past Surgical History (Last Updated 03/09/22 @ 22:57 by Misty Ramos) Anesthesia Branchial cyst (~2007) History of nasal septoplasty (~2017) Visit Care Team Role Provider Type Omari White MD Family Provider Physician Primary Care Provider Specialty: Internal Medicine Address: [address] [place] [address], [facility] Email: [email or web address] Juan Francisco James Attending Provider Non-Staff Referring Provider Specialty: Otolaryngology (ENT) Address: [address] [place] [address], [id number], [place], [address] Email: Physical Therapy Initial Evaluation PT-OP-A Visit Information Start: 03/13/22 09:48 Freq: Status: Active Protocol: Document 03/16/22 14:32 AMB (Rec: 03/16/22 15:20 AMB [id number]) Out-Patient Physical Therapy Visit Information Visit Information Visit Type Initial Evaluation Visit Start Time 14:30 Visit Stop Time 15:15 Total Visit Minutes 45 Visit Number 1 PT-OP-B Current Condition Start: 03/13/22 09:48 Freq: Status: Active Protocol: Document 03/16/22 14:32 AMB (Rec: 03/16/22 15:20 AMB [id number]) Current Condition History of Current Condition Onset Date chronic Current Complaints dizziness History of Current Condition Justen has had dizziness for years now. Has had multiple VNGs. Has had prior vestibular physical therapy. Saw [facility] most recently and they confirmed vestibular migraine, on meds now, hasn't noticed a huge change yet. Hasn't really tried changing his diet too much, unsure of triggers. 5x in the last year when felt really good and balanced, otherwise feels off and floaty a lot. 1-04/16 dizziness at rest. Has done calorics 3x now. Dizziness Can get up to 5-7/10. Exercises can increase dizziness for a while. Has kept up with doing prior exercises Treatment Goals Patient/Caregiver Goals Reduce dizziness. PT-OP-C Subjective Start: 03/13/22 09:48 Freq: Status: Active Protocol: Document 03/16/22 14:30 AMB (Rec: 03/16/22 16:05 AMB [id number]) Patient Questionnaires Dizziness Handicap Inventory DHI Score 46 DHI Functional Impairment 40 to 59% Impaired (Score 40- 59) PT-OP-O Vestibular Start: 03/13/22 09:48 Freq: Status: Active Protocol: Document 03/16/22 14:30 AMB (Rec: 03/29/22 10:53 AMB [id number]) Vestibular Assessment Visual Testing Smooth Pursuits Horizontal WFL Smooth Pursuits Vertical WFL Saccades Horizontal WFL Saccades Vertical WFL Thrust Head Positive Right DVA (Line Degradation) 5 Vestibular Function Tests mCTSIB Position 1 30 mCTSIB Position 2 30 mCTSIB Position 3 30 ankle sway mCTSIB Position 4 30 ankle sway PT-OP-Q Treatments Start: 03/13/22 09:48 Freq: Status: Active Protocol: Document 03/16/22 14:30 AMB (Rec: 03/29/22 10:53 AMB [id number]) Neuro Re-Education Treatment Vestibular Rehabilitation VOR Retraining Comments asked pt to increase time that pt is doing VOR- had been doing 30 seconds, to try to increase to 1 minute. PT-OP-T Assessment and Plan Start: 03/13/22 09:48 Freq: Status: Active Protocol: Document 03/16/22 14:30 AMB (Rec: 03/29/22 11:01 AMB [id number]) Physical Therapy Assessment Rehab Potential Rehabilitation Potential Good Evaluation Complexity Number of Personal Factors/Comorbidities 0 Number of Body Systems Impaired 1-2 Clinical Presentation at Evaluation Stable Impairments Impairments Vestibular Goals Two Impairment Dizziness Short Term Goal (STG) Justen will report baseline dizziness as 3/10 or less. STG Duration 6 weeks Square Cutter Goal (LTG) Pt will look up and down while walking without an increase in his baseline dizziness. LTG Duration 12 weeks One Impairment HEP Short Term Goal (STG) Justen will be independent and consistent with a progressive vestibular HEP. STG Duration 6 weeks Square Cutter Goal (LTG) Justen will tolerate 1 minute of VOR exercises without an increase in his baseline dizziness. LTG Duration 12 weeks Assessment Summary Assessment Justen attends physical therapy with 5-6 year history of feeling dizziness. No real triggers that he has been able to figure out, although does get more dizzy with vestibular exercises from previous vestibular therapy. Notes dizziness continues to be around 4-5/10 although it can get worse. Has had multiple VNGs which showed vestibular loss. DVA and thrust test were positive for impaired vestibular function. Pt has had previous vestibular therapy with limited benefit, challenging as he struggles to know what triggers his symptoms. Discussed vestibular migraine at length. Pt will benefit from physical therapy to help manage his sx and vestibular deficits. Physical Therapy Plan Frequency and Duration Frequency of Treatment 1x/Week Duration of treatment (weeks) 12 Plan of Care Start Date 03/16/22 Plan of Care End Date 06/08/22 Therapeutic Interventions Therapeutic Interventions Balance Training,Home Exercise Program,Manual Therapy, Neuromuscular Re-education, Self-Care/Home Management, Therapeutic Activities, Therapeutic Exercises, Vestibular Rehabilitation Next Visit Focus/Plan Next Note Type Treatment Note Next Visit Plan Revisit VOR frequency, intensity, duration
--- NOTE | 2022-04-06 21:14 | PT.OTN ---
Current Diagnoses Migraine with aura, not intractable, without status migrainosus (04/06/22) Vestibular neuronitis, right ear (04/06/22) Unspecified disorder of vestibular function, right ear (04/06/22) Physical Therapy Treatment Note PT-OP-A Visit Information Start: 03/13/22 09:48 Freq: Status: Active Protocol: Document 04/06/22 07:30 AMB (Rec: 04/06/22 07:35 AMB [id number]) Out-Patient Physical Therapy Visit Information Visit Information Visit Type Treatment Note Visit Start Time 07:30 Visit Stop Time 08:15 Total Visit Minutes 45 Visit Number 2 PT-OP-B Current Condition Start: 03/13/22 09:48 Freq: Status: Active Protocol: Document 03/16/22 14:32 AMB (Rec: 03/16/22 15:20 AMB [id number]) Current Condition History of Current Condition Onset Date chronic Current Complaints dizziness History of Current Condition Justen has had dizziness for years now. Has had multiple VNGs. Has had prior vestibular physical therapy. Saw most recently and they confirmed vestibular migraine, on meds now, hasn't noticed a huge change yet. Hasn't really tried changing his diet too much, unsure of triggers. 5x in the last year when felt really good and balanced, otherwise feels off and floaty a lot. 1-2/10 dizziness at rest. Has done calorics 3x now. Dizziness Can get up to 5-7/10. Exercises can increase dizziness for a while. Has kept up with doing prior exercises Treatment Goals Patient/Caregiver Goals Reduce dizziness. PT-OP-C Subjective Start: 03/13/22 09:48 Freq: Status: Active Protocol: Document 04/06/22 07:30 AMB (Rec: 04/06/22 07:35 AMB [id number]) OP-PT Subjective Patient Comments Patient Comments Pt PT-OP-O Vestibular Start: 03/13/22 09:48 Freq: Status: Active Protocol: Document 03/16/22 14:30 AMB (Rec: 03/29/22 10:53 AMB [id number]) Vestibular Assessment Visual Testing Smooth Pursuits Horizontal WFL Smooth Pursuits Vertical WFL Saccades Horizontal WFL Saccades Vertical WFL Thrust Head Positive Right DVA (Line Degradation) 5 Vestibular Function Tests mCTSIB Position 1 30 mCTSIB Position 2 30 mCTSIB Position 3 30 ankle sway mCTSIB Position 4 30 ankle sway PT-OP-Q Treatments Start: 03/13/22 09:48 Freq: Status: Active Protocol: Document 04/06/22 07:30 AMB (Rec: 04/06/22 08:13 AMB [id number]) Neuro Re-Education Treatment Balance Activities walking with head turns Details horizontal and vertical Reps/Duration 10 1 Details 3 step and bow Reps/Duration 10 Vestibular Rehabilitation VOR Retraining Speed 65bpm Comments asked pt to increase time that pt is doing VOR- had been doing 30 seconds, to try to increase to 1 minute. PT-OP-T Assessment and Plan Start: 03/13/22 09:48 Freq: Status: Active Protocol: Document 04/06/22 07:30 AMB (Rec: 04/06/22 07:35 AMB [id number]) Physical Therapy Assessment Goals Two Impairment Dizziness Short Term Goal (STG) Justen will report baseline dizziness as 3/10 or less. STG Duration 6 weeks Care Home Goal (LTG) Pt will look up and down while walking without an increase in his baseline dizziness. LTG Duration 12 weeks One Impairment HEP Short Term Goal (STG) Justen will be independent and consistent with a progressive vestibular HEP. STG Duration 6 weeks Care Home Goal (LTG) Justen will tolerate 1 minute of VOR exercises without an increase in his baseline dizziness. LTG Duration 12 weeks Assessment Summary Assessment Justen continues to question vestibular migraine as a daignosis. Encouraged him to continue with exercises, which has been doing, just dissatisfied with his side effects. Did show improved DVA testing today to 3 lines ( improved from 5). Told pt we can keep retesting as he feels function is quite variable. Assessed cervical spine, pt has had quite a few falls with skiing, but cervical range was WNF, cervicogenic testing not especially provacative, and explained to pt would not explain VNG testing. Physical Therapy Plan Frequency and Duration Frequency of Treatment 1x/Week Duration of treatment (weeks) 12 Plan of Care Start Date 03/16/22 Plan of Care End Date 06/08/22 Therapeutic Interventions Therapeutic Interventions Balance Training,Home Exercise Program,Manual Therapy, Neuromuscular Re-education, Self-Care/Home Management, Therapeutic Activities, Therapeutic Exercises, Vestibular Rehabilitation Next Visit Focus/Plan Next Note Type Treatment Note Next Visit Plan Progress VNG, retest DVA
--- NOTE | 2022-04-19 21:41 | PT.OTN ---
Current Diagnoses Migraine with aura, not intractable, without status migrainosus (04/19/22) Vestibular neuronitis, right ear (04/19/22) Unspecified disorder of vestibular function, right ear (04/19/22) Physical Therapy Treatment Note PT-OP-A Visit Information Start: 03/13/22 09:48 Freq: Status: Active Protocol: Document 04/19/22 07:35 AMB (Rec: 04/19/22 08:13 AMB [id number]) Out-Patient Physical Therapy Visit Information Visit Information Visit Type Treatment Note Visit Start Time 07:30 Visit Stop Time 08:15 Total Visit Minutes 45 Visit Number 3 PT-OP-B Current Condition Start: 03/13/22 09:48 Freq: Status: Active Protocol: Document 03/16/22 14:32 AMB (Rec: 03/16/22 15:20 AMB [id number]) Current Condition History of Current Condition Onset Date chronic Current Complaints dizziness History of Current Condition Justen has had dizziness for years now. Has had multiple VNGs. Has had prior vestibular physical therapy. Saw most recently and they confirmed vestibular migraine, on meds now, hasn't noticed a huge change yet. Hasn't really tried changing his diet too much, unsure of triggers. 5x in the last year when felt really good and balanced, otherwise feels off and floaty a lot. 1-2/10 dizziness at rest. Has done calorics 3x now. Dizziness Can get up to 5-7/10. Exercises can increase dizziness for a while. Has kept up with doing prior exercises Treatment Goals Patient/Caregiver Goals Reduce dizziness. PT-OP-C Subjective Start: 03/13/22 09:48 Freq: Status: Active Protocol: Document 04/19/22 07:35 AMB (Rec: 04/19/22 08:13 AMB [id number]) OP-PT Subjective Patient Comments Patient Comments Pt went to [facility] for the week and felt pretty good. Doubled medication so hands are pretty tingly. PT-OP-O Vestibular Start: 03/13/22 09:48 Freq: Status: Active Protocol: Document 03/16/22 14:30 AMB (Rec: 03/29/22 10:53 AMB [id number]) Vestibular Assessment Visual Testing Smooth Pursuits Horizontal WFL Smooth Pursuits Vertical WFL Saccades Horizontal WFL Saccades Vertical WFL Thrust Head Positive Right DVA (Line Degradation) 5 Vestibular Function Tests mCTSIB Position 1 30 mCTSIB Position 2 30 mCTSIB Position 3 30 ankle sway mCTSIB Position 4 30 ankle sway PT-OP-Q Treatments Start: 03/13/22 09:48 Freq: Status: Active Protocol: Document 04/19/22 07:35 AMB (Rec: 04/19/22 08:13 AMB [id number]) Gym Equipment Shuttle Balance Red Comments WBOS (head turns -vert/horiz) Staggered (Head Turns) Lateral weight shift VOR Neuro Re-Education Treatment Balance Activities walking with head turns Details horizontal and vertical Reps/Duration 10 1 Details 3 step and bow Reps/Duration 10 Vestibular Rehabilitation VOR Retraining Speed 65bpm Comments asked pt to increase time that pt is doing VOR- had been doing 30 seconds, to try to increase to 1 minute. Other Activities bosu ball Comments with VOR, challenging PT-OP-T Assessment and Plan Start: 03/13/22 09:48 Freq: Status: Active Protocol: Document 04/19/22 07:35 AMB (Rec: 04/19/22 08:13 AMB [id number]) Physical Therapy Assessment Goals Two Impairment Dizziness Short Term Goal (STG) Justen will report baseline dizziness as 3/10 or less. STG Duration 6 weeks Skilled Nursing Goal (LTG) Pt will look up and down while walking without an increase in his baseline dizziness. LTG Duration 12 weeks One Impairment HEP Short Term Goal (STG) Justen will be independent and consistent with a progressive vestibular HEP. STG Duration 6 weeks Skilled Nursing Goal (LTG) Justen will tolerate 1 minute of VOR exercises without an increase in his baseline dizziness. 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 3 line difference in DVA again. Significant time spent today discussing improved sx when skiing. Time spent away from monitors stress of home/work is likely helping. Discussed blue light glasses lowering brightness of monitors, taking breaks etc . Physical Therapy Plan Frequency and Duration Frequency of Treatment 1x/Week Duration of treatment (weeks) 12 Plan of Care Start Date 03/16/22 Plan of Care End Date 06/08/22 Therapeutic Interventions Therapeutic Interventions Balance Training,Home Exercise Program,Manual Therapy, Neuromuscular Re-education, Self-Care/Home Management, Therapeutic Activities, Therapeutic Exercises, Vestibular Rehabilitation Next Visit Focus/Plan Next Note Type Treatment Note Next Visit Plan Progress VOR, retest DVA
--- NOTE | 2022-04-30 13:53 | PT.OTN ---
Current Diagnoses Migraine with aura, not intractable, without status migrainosus (04/30/22) Vestibular neuronitis, right ear (04/30/22) Unspecified disorder of vestibular function, right ear (04/30/22) Physical Therapy Treatment Note PT-OP-A Visit Information Start: 03/13/22 09:48 Freq: Status: Active Protocol: Document 04/30/22 13:00 AMB (Rec: 04/30/22 13:53 AMB [id number]) Out-Patient Physical Therapy Visit Information Visit Information Visit Type Treatment Note Visit Start Time 13:00 Visit Stop Time 13:45 Total Visit Minutes 45 Visit Number 4 PT-OP-B Current Condition Start: 03/13/22 09:48 Freq: Status: Active Protocol: Document 03/16/22 14:32 AMB (Rec: 03/16/22 15:20 AMB [id number]) Current Condition History of Current Condition Onset Date chronic Current Complaints dizziness History of Current Condition Justen has had dizziness for years now. Has had multiple VNGs. Has had prior vestibular physical therapy. Saw most recently and they confirmed vestibular migraine, on meds now, hasn't noticed a huge change yet. Hasn't really tried changing his diet too much, unsure of triggers. 5x in the last year when felt really good and balanced, otherwise feels off and floaty a lot. 1-2/10 dizziness at rest. Has done calorics 3x now. Dizziness Can get up to 5-7/10. Exercises can increase dizziness for a while. Has kept up with doing prior exercises Treatment Goals Patient/Caregiver Goals Reduce dizziness. PT-OP-C Subjective Start: 03/13/22 09:48 Freq: Status: Active Protocol: Document 04/30/22 13:00 AMB (Rec: 04/30/22 13:53 AMB [id number]) OP-PT Subjective Patient Comments Patient Comments Pt reports he hasn't been on his meds for about a day and a half due to prescription issues. PT-OP-O Vestibular Start: 03/13/22 09:48 Freq: Status: Active Protocol: Document 03/16/22 14:30 AMB (Rec: 03/29/22 10:53 AMB [id number]) Vestibular Assessment Visual Testing Smooth Pursuits Horizontal WFL Smooth Pursuits Vertical WFL Saccades Horizontal WFL Saccades Vertical WFL Thrust Head Positive Right DVA (Line Degradation) 5 Vestibular Function Tests mCTSIB Position 1 30 mCTSIB Position 2 30 mCTSIB Position 3 30 ankle sway mCTSIB Position 4 30 ankle sway PT-OP-Q Treatments Start: 03/13/22 09:48 Freq: Status: Active Protocol: Document 04/30/22 13:00 AMB (Rec: 04/30/22 13:53 AMB [id number]) Gym Equipment Shuttle Balance Red Comments WBOS (head turns -vert/horiz) Staggered (Head Turns) Lateral weight shift VOR Neuro Re-Education Treatment Balance Activities walking with head turns Details horizontal and vertical Reps/Duration 10 Vestibular Rehabilitation VOR Retraining Speed 65bpm Comments asked pt to increase time that pt is doing VOR- had been doing 30 seconds, to try to increase to 1 minute. Other Activities bosu ball Comments with VOR, challenging PT-OP-T Assessment and Plan Start: 03/13/22 09:48 Freq: Status: Active Protocol: Document 04/30/22 13:00 AMB (Rec: 04/30/22 13:53 AMB [id number]) Physical Therapy Assessment Goals Two Impairment Dizziness Short Term Goal (STG) Justen will report baseline dizziness as 3/10 or less. STG Duration 6 weeks Fdc Goal (LTG) Pt will look up and down while walking without an increase in his baseline dizziness. LTG Duration 12 weeks One Impairment HEP Short Term Goal (STG) Justen will be independent and consistent with a progressive vestibular HEP. STG Duration 6 weeks Fdc Goal (LTG) Justen will tolerate 1 minute of VOR exercises without an increase in his baseline dizziness. LTG Duration 12 weeks Assessment Summary Assessment Pt had 6-7 hours of computer time and then was driving and had a , but even with all that he was feeling ok yesterday. 3 line with DVA. [place] better with balance board and bosu ball. Physical Therapy Plan Frequency and Duration Frequency of Treatment 1x/Week Duration of treatment (weeks) 12 Plan of Care Start Date 03/16/22 Plan of Care End Date 06/08/22 Therapeutic Interventions Therapeutic Interventions Balance Training,Home Exercise Program,Manual Therapy, Neuromuscular Re-education, Self-Care/Home Management, Therapeutic Activities, Therapeutic Exercises, Vestibular Rehabilitation Next Visit Focus/Plan Next Note Type Treatment Note Next Visit Plan Progress VOR, retest DVA
--- NOTE | 2022-05-10 13:43 | PT.OTN ---
Current Diagnoses Migraine with aura, not intractable, without status migrainosus (05/10/22) Vestibular neuronitis, right ear (05/10/22) Unspecified disorder of vestibular function, right ear (05/10/22) Physical Therapy Treatment Note PT-OP-A Visit Information Start: 03/13/22 09:48 Freq: Status: Active Protocol: Document 05/10/22 13:03 AMB (Rec: 05/10/22 13:42 AMB [id number]) Out-Patient Physical Therapy Visit Information Visit Information Visit Type Treatment Note Visit Start Time 13:00 Visit Stop Time 13:45 Total Visit Minutes 45 Visit Number 5 PT-OP-B Current Condition Start: 03/13/22 09:48 Freq: Status: Active Protocol: Document 03/16/22 14:32 AMB (Rec: 03/16/22 15:20 AMB [id number]) Current Condition History of Current Condition Onset Date chronic Current Complaints dizziness History of Current Condition Justen has had dizziness for years now. Has had multiple VNGs. Has had prior vestibular physical therapy. Saw most recently and they confirmed vestibular migraine, on meds now, hasn't noticed a huge change yet. Hasn't really tried changing his diet too much, unsure of triggers. 5x in the last year when felt really good and balanced, otherwise feels off and floaty a lot. 1-2/10 dizziness at rest. Has done calorics 3x now. Dizziness Can get up to 5-7/10. Exercises can increase dizziness for a while. Has kept up with doing prior exercises Treatment Goals Patient/Caregiver Goals Reduce dizziness. PT-OP-C Subjective Start: 03/13/22 09:48 Freq: Status: Active Protocol: Document 05/10/22 13:03 AMB (Rec: 05/10/22 13:42 AMB [id number]) OP-PT Subjective Patient Comments Patient Comments Back on meds at higher dosage now. PT-OP-O Vestibular Start: 03/13/22 09:48 Freq: Status: Active Protocol: Document 03/16/22 14:30 AMB (Rec: 03/29/22 10:53 AMB [id number]) Vestibular Assessment Visual Testing Smooth Pursuits Horizontal WFL Smooth Pursuits Vertical WFL Saccades Horizontal WFL Saccades Vertical WFL Thrust Head Positive Right DVA (Line Degradation) 5 Vestibular Function Tests mCTSIB Position 1 30 mCTSIB Position 2 30 mCTSIB Position 3 30 ankle sway mCTSIB Position 4 30 ankle sway PT-OP-Q Treatments Start: 03/13/22 09:48 Freq: Status: Active Protocol: Document 05/10/22 13:03 AMB (Rec: 05/10/22 13:42 AMB [id number]) Neuro Re-Education Treatment Balance Activities diagonal head turns Reps/Duration 30x4 Comments challenging walking with head turns Details horizontal and vertical Reps/Duration 10 1 Details 3 step and bow Reps/Duration 10 Other Activities bosu ball Comments with VOR, challenging PT-OP-T Assessment and Plan Start: 03/13/22 09:48 Freq: Status: Active Protocol: Document 05/10/22 13:03 AMB (Rec: 05/10/22 13:42 AMB [id number]) Physical Therapy Assessment Goals Two Impairment Dizziness Short Term Goal (STG) Justen will report baseline dizziness as 3/10 or less. STG Duration 6 weeks Inking Machine Tender Goal (LTG) Pt will look up and down while walking without an increase in his baseline dizziness. LTG Duration 12 weeks One Impairment HEP Short Term Goal (STG) Justen will be independent and consistent with a progressive vestibular HEP. STG Duration 6 weeks Inking Machine Tender Goal (LTG) Justen will tolerate 1 minute of VOR exercises without an increase in his baseline dizziness. LTG Duration 12 weeks Assessment Summary Assessment DVA with glasses 2, without 4. Challenged with diagonal head turns. Physical Therapy Plan Frequency and Duration Frequency of Treatment 1x/Week Duration of treatment (weeks) 12 Plan of Care Start Date 03/16/22 Plan of Care End Date 06/08/22 Therapeutic Interventions Therapeutic Interventions Balance Training,Home Exercise Program,Manual Therapy, Neuromuscular Re-education, Self-Care/Home Management, Therapeutic Activities, Therapeutic Exercises, Vestibular Rehabilitation Next Visit Focus/Plan Next Note Type Treatment Note Next Visit Plan Progress VOR, retest DVA
--- NOTE | 2022-05-24 07:35 | PT.OPPOC ---
Physical, Occupational & Speech Therapy At [facility] Current Diagnoses Migraine with aura, not intractable, without status migrainosus (05/24/22) Vestibular neuronitis, right ear (05/24/22) Unspecified disorder of vestibular function, right ear (05/24/22) Visit Care Team Role Provider Type Omari White MD Family Provider Physician Primary Care Provider Specialty: Internal Medicine Address: [address] [place] [address], [id number] Email: [email or web address] Juan Francisco James Attending Provider Non-Staff Referring Provider Specialty: Otolaryngology (ENT) Address: [address] [facility], [id number], [place], [address] Email: Plan Of Care PT-OP-T Assessment and Plan Start: 03/13/22 09:48 Freq: Status: Active Protocol: Document 05/24/22 14:33 AMB (Rec: 05/24/22 15:16 AMB [id number]) Physical Therapy Assessment Goals Two Impairment Dizziness Short Term Goal (STG) Justen will report baseline dizziness as 3/10 or less. STG Duration 6 weeks Longterm Goal (LTG) Pt will look up and down while walking without an increase in his baseline dizziness. LTG Duration 12 weeks One Impairment HEP Short Term Goal (STG) Justen will be independent and consistent with a progressive vestibular HEP. STG Duration MET Longterm Goal (LTG) Justen will tolerate 1 minute of VOR exercises without an increase in his baseline dizziness. LTG Duration 12 weeks Assessment Summary Assessment DVA with glasses 2, without glasses had a more difficult time with static vision than normal. Overall Justen is recovering from a very rough week. He changed medications and thinks that has been quite helpful. Overall Justen continues to perform HEP approx 20 minutes per day two times a day. Have progressed to be more challenging. Symptoms continue to be variable, some day his dizziness is quite under control, and other times not as much. Physical Therapy Plan Frequency and Duration Frequency of Treatment Every Other Week Duration of treatment (weeks) 6 Plan of Care Start Date 05/25/22 Plan of Care End Date 08/06/22 Therapeutic Interventions Therapeutic Interventions Balance Training,Home Exercise Program,Manual Therapy, Neuromuscular Re-education, Self-Care/Home Management, Therapeutic Activities, Therapeutic Exercises, Vestibular Rehabilitation Next Visit Focus/Plan Next Note Type Treatment Note Next Visit Plan Progress VOR, retest DVA Plan of Care Dates Plan of Care Start Date 05/25/22 Plan of Care End Date 08/06/22 Electronically Signed by: Veronica Morrison, PT 05/28/22 0735 If you are in agreement with this Plan of Care, please return a signed and dated copy. I have reviewed this Plan of Care and certify that the skilled therapy services above are required to meet the patient?s needs. Physician Signature Date Printed Name and Credentials Clinical Instructor Signature Printed Name and Credentials
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
--- NOTE | 2022-07-09 14:15 | PT.OTN ---
Current Diagnoses Migraine with aura, not intractable, without status migrainosus (07/09/22) Vestibular neuronitis, right ear (07/09/22) Unspecified disorder of vestibular function, right ear (07/09/22) Physical Therapy Treatment Note PT-OP-A Visit Information Start: 03/13/22 09:48 Freq: Status: Active Protocol: Document 07/09/22 13:30 DCW (Rec: 07/09/22 14:14 DCW [id number]) Out-Patient Physical Therapy Visit Information Visit Information Visit Type Treatment Note Visit Start Time 13:30 Visit Stop Time 14:15 Total Visit Minutes 45 Visit Number 7 PT-OP-B Current Condition Start: 03/13/22 09:48 Freq: Status: Active Protocol: Document 03/16/22 14:32 AMB (Rec: 03/16/22 15:20 AMB [id number]) Current Condition History of Current Condition Onset Date chronic Current Complaints dizziness History of Current Condition Justen has had dizziness for years now. Has had multiple VNGs. Has had prior vestibular physical therapy. Saw most recently and they confirmed vestibular migraine, on meds now, hasn't noticed a huge change yet. Hasn't really tried changing his diet too much, unsure of triggers. 5x in the last year when felt really good and balanced, otherwise feels off and floaty a lot. 1-2/10 dizziness at rest. Has done calorics 3x now. Dizziness Can get up to 5-7/10. Exercises can increase dizziness for a while. Has kept up with doing prior exercises Treatment Goals Patient/Caregiver Goals Reduce dizziness. PT-OP-C Subjective Start: 03/13/22 09:48 Freq: Status: Active Protocol: Document 07/09/22 13:30 DCW (Rec: 07/09/22 14:14 DCW [id number]) OP-PT Subjective Patient Comments Patient Comments I think a little bit better. The previous medication they had me on, I think, was destroying me. I've felt better with this new medication though. PT-OP-O Vestibular Start: 03/13/22 09:48 Freq: Status: Active Protocol: Document 03/16/22 14:30 AMB (Rec: 03/29/22 10:53 AMB [id number]) Vestibular Assessment Visual Testing Smooth Pursuits Horizontal WFL Smooth Pursuits Vertical WFL Saccades Horizontal WFL Saccades Vertical WFL Thrust Head Positive Right DVA (Line Degradation) 5 Vestibular Function Tests mCTSIB Position 1 30 mCTSIB Position 2 30 mCTSIB Position 3 30 ankle sway mCTSIB Position 4 30 ankle sway PT-OP-Q Treatments Start: 03/13/22 09:48 Freq: Status: Active Protocol: Document 07/09/22 13:30 DCW (Rec: 07/09/22 14:14 DCW [id number]) Gym Equipment Shuttle Balance Red Comments WBOS (head turns -vert/horiz) Staggered (Head Turns) Lateral weight shift Neuro Re-Education Treatment Balance Activities walking with head turns Details horizontal, vertical, diagonal Reps/Duration 10 1 Details 3 step and bow Reps/Duration 10 Other Activities Air Pad Details Standing on large blue Air Pad /c disco ball spinning bosu ball Details Blue and Black BOSU Comments with VOR, challenging PT-OP-T Assessment and Plan Start: 03/13/22 09:48 Freq: Status: Active Protocol: Document 07/09/22 13:30 DCW (Rec: 07/09/22 14:14 DCW [id number]) Physical Therapy Assessment Goals Two Impairment Dizziness Short Term Goal (STG) Justen will report baseline dizziness as 3/10 or less. STG Duration 6 weeks Reordering Clerk Goal (LTG) Pt will look up and down while walking without an increase in his baseline dizziness. LTG Duration 12 weeks One Impairment HEP Short Term Goal (STG) Justen will be independent and consistent with a progressive vestibular HEP. STG Duration MET Reordering Clerk Goal (LTG) Justen will tolerate 1 minute of VOR exercises without an increase in his baseline dizziness. LTG Duration 12 weeks Assessment Summary Assessment Pt is approaching goals regarding baseline dizziness of 3/10 or better, notes that most of the time the past week he has been 2.5-3/10, but still increases with faster movements or when driving. Did very well with all balance and vestibular challenges today. Physical Therapy Plan Frequency and Duration Frequency of Treatment Every Other Week Duration of treatment (weeks) 6 Plan of Care Start Date 05/25/22 Plan of Care End Date 08/06/22 Therapeutic Interventions Therapeutic Interventions Balance Training,Home Exercise Program,Manual Therapy, Neuromuscular Re-education, Self-Care/Home Management, Therapeutic Activities, Therapeutic Exercises, Vestibular Rehabilitation Next Visit Focus/Plan Next Note Type Progress Note Next Visit Plan Progress VOR, retest DVA
--- NOTE | 2022-10-06 13:56 | PT.OPDS ---
Current Diagnoses Migraine with aura, not intractable, without status migrainosus (07/09/22) Vestibular neuronitis, right ear (07/09/22) Unspecified disorder of vestibular function, right ear (07/09/22) Visit Care Team Role Provider Type Omari White MD Family Provider Physician Primary Care Provider Specialty: Internal Medicine Address: [address] [place] [address], [id number] Email: [email or web address] Juan Francisco James Attending Provider Non-Staff Referring Provider Specialty: Otolaryngology (ENT) Address: [address], [address], [place], [address] Email: Visit Number Visit Number 7 Discharge Summary PT-OP-B Current Condition Start: 03/13/22 09:48 Freq: Status: Active Protocol: Document 03/16/22 14:32 AMB (Rec: 03/16/22 15:20 AMB [id number]) Current Condition History of Current Condition Onset Date chronic Current Complaints dizziness History of Current Condition Justen has had dizziness for years now. Has had multiple VNGs. Has had prior vestibular physical therapy. Saw most recently and they confirmed vestibular migraine, on meds now, hasn't noticed a huge change yet. Hasn't really tried changing his diet too much, unsure of triggers. 5x in the last year when felt really good and balanced, otherwise feels off and floaty a lot. 1-2/10 dizziness at rest. Has done calorics 3x now. Dizziness Can get up to 5-7/10. Exercises can increase dizziness for a while. Has kept up with doing prior exercises Treatment Goals Patient/Caregiver Goals Reduce dizziness. PT-OP-C Subjective Start: 03/13/22 09:48 Freq: Status: Active Protocol: Document 07/09/22 13:30 DCW (Rec: 07/09/22 14:14 DCW [id number]) OP-PT Subjective Patient Comments Patient Comments I think a little bit better. The previous medication they had me on, I think, was destroying me. I've felt better with this new medication though. PT-OP-O Vestibular Start: 03/13/22 09:48 Freq: Status: Active Protocol: Document 03/16/22 14:30 AMB (Rec: 03/29/22 10:53 AMB [id number]) Vestibular Assessment Visual Testing Smooth Pursuits Horizontal WFL Smooth Pursuits Vertical WFL Saccades Horizontal WFL Saccades Vertical WFL Thrust Head Positive Right DVA (Line Degradation) 5 Vestibular Function Tests mCTSIB Position 1 30 mCTSIB Position 2 30 mCTSIB Position 3 30 ankle sway mCTSIB Position 4 30 ankle sway PT-OP-T Assessment and Plan Start: 03/13/22 09:48 Freq: Status: Active Protocol: Document 10/06/22 13:54 AMB (Rec: 10/06/22 13:56 AMB [id number]) Physical Therapy Assessment Assessment Summary Assessment The patient's plan of care and he was called and told that he had to cancel his last remaining appointment. At his last appointment he had shown some good progress with reducing dizziness. PT called him to discuss and state that he would need a new referral to return to PT.
== END 2022-10-07 12:03 | disposition home or self-care (01) ==
LOC: PHYS 13:30
PROVIDERS: Family Provider Internal Medicine; PCP Internal Medicine; Referring Provider Otolaryngology; Visit Provider Otolaryngology
DX: H81.91 Unspecified disorder of vestibular function, right ear (principal); G43.109 Migraine with aura, not intractable, without status migrainosus; H81.21 Vestibular neuronitis, right ear
CPT/HCPCS: 97112; 97161

== ENCOUNTER → 2022-08-13 07:39 | Outpatient (CLI) | payer OTHER, SELFPAY | PROVIDERS: Family Provider Internal Medicine; PCP Internal Medicine; Referring Provider Urology; Visit Provider Urology | DX: R97.20 Elevated prostate specific antigen [PSA] (principal) | CPT/HCPCS: 36415; 84153 ==

== ENCOUNTER → 2022-11-25 15:42 | Outpatient (CLI) | payer OTHER, SELFPAY ==
[2022-11-25 18:08] LABS: Prostate Specific Antigen 4.08 ng/mL (0.10-4.00)
== END ==
PROVIDERS: Family Provider Internal Medicine; PCP Internal Medicine; Referring Provider Urology; Visit Provider Urology
DX: R97.20 Elevated prostate specific antigen [PSA] (principal); N40.1 Benign prostatic hyperplasia with lower urinary tract symptoms; N13.8 Other obstructive and reflux uropathy
CPT/HCPCS: 36415; 84153

== ENCOUNTER → 2023-02-11 14:08 | Outpatient (CLI) | payer OTHER, SELFPAY ==
[2023-02-15 09:20] LABS: PSA Free % 17.7 % (.); PSA, Total 4.8 ng/mL (0.0-4.0)
== END ==
PROVIDERS: Family Provider Internal Medicine; PCP Internal Medicine; Referring Provider Urology; Visit Provider Urology
DX: R97.20 Elevated prostate specific antigen [PSA] (principal)
CPT/HCPCS: 36415; 84153; 84154

== ENCOUNTER → 2023-03-14 15:20 | Outpatient (CLI) | payer OTHER, SELFPAY ==
[2023-03-17 11:54] LABS: PSA Free % 19.7 % (.); PSA, Total 3.8 ng/mL (0.0-4.0)
== END ==
PROVIDERS: Family Provider Internal Medicine; PCP Internal Medicine; Referring Provider Urology; Visit Provider Urology
DX: R97.20 Elevated prostate specific antigen [PSA] (principal)
CPT/HCPCS: 36415; 84153; 84154

== ENCOUNTER → 2023-03-22 14:13 | Outpatient (CLI) | payer OTHER, SELFPAY | PROVIDERS: Family Provider Internal Medicine; PCP Internal Medicine; Visit Provider Urology | DX: N40.1 Benign prostatic hyperplasia with lower urinary tract symptoms (principal); N13.8 Other obstructive and reflux uropathy; R39.14 Feeling of incomplete bladder emptying; R97.20 Elevated prostate specific antigen [PSA] | CPT/HCPCS: 51798; 81002; 87086 ==

== ENCOUNTER → 2023-06-17 14:43 | Outpatient (CLI) | payer OTHER, SELFPAY ==
[2023-06-21 14:50] LABS: PSA Free % 21.5 % (.); PSA, Total 4.8 ng/mL (0.0-4.0)
== END ==
PROVIDERS: Family Provider Internal Medicine; PCP Internal Medicine; Referring Provider Urology; Visit Provider Urology
DX: R97.20 Elevated prostate specific antigen [PSA] (principal)
CPT/HCPCS: 84153; 84154

== ENCOUNTER → 2023-09-13 08:39 | Outpatient (CLI) | payer OTHER, SELFPAY ==
[2023-09-14 14:33] LABS: Prostate Specific Antigen 4.67 ng/mL (0.10-4.00)
== END ==
PROVIDERS: Family Provider Internal Medicine; PCP Internal Medicine; Referring Provider Urology; Visit Provider Urology
DX: R97.20 Elevated prostate specific antigen [PSA] (principal); N13.8 Other obstructive and reflux uropathy; N40.1 Benign prostatic hyperplasia with lower urinary tract symptoms
CPT/HCPCS: 36415; 84153

== ENCOUNTER → 2023-09-30 13:13 | Outpatient (CLI) | payer OTHER, SELFPAY | PROVIDERS: Family Provider Internal Medicine; PCP Internal Medicine; Referring Provider Urology; Visit Provider Urology | DX: N40.1 Benign prostatic hyperplasia with lower urinary tract symptoms (principal); N13.8 Other obstructive and reflux uropathy; R97.20 Elevated prostate specific antigen [PSA]; R39.14 Feeling of incomplete bladder emptying | CPT/HCPCS: 51798; 81002; 87086 ==

== ENCOUNTER → 2023-12-22 13:36 | Outpatient (CLI) | payer OTHER, SELFPAY | PROVIDERS: Family Provider Internal Medicine; PCP Internal Medicine; Referring Provider Urology; Visit Provider Urology | DX: R97.20 Elevated prostate specific antigen [PSA] (principal) | CPT/HCPCS: 36415; 84153; 84154 ==

== ENCOUNTER → 2024-04-16 11:05 | Outpatient (CLI) | payer OTHER, SELFPAY ==
[2024-04-16 11:51] LABS: Appearance Urine UA CLEAR; Bilirubin Urine UA NEGATIVE (NEGATIVE); Color Urine UA YELLOW; Glucose Urine UA NEGATIVE (Negative); Ketones Urine UA NEGATIVE (NEGATIVE); Leukocyte Esterase Urine UA TRACE (NEGATIVE); Nitrite Urine UA NEGATIVE (Negative); Occult Blood Urine UA NEGATIVE (Negative); Protein Urine UA NEGATIVE (Negative); Specific Gravity Urine UA <=1.005 (1.000-1.035); Urobilinogen Urine UA 0.2 E.U./dL (0.2)
[2024-04-16 11:54] LABS: Urine Volume 10mL (spun)
[2024-04-16 11:55] LABS: Bacteria Urine None Seen; Culture Indicated Urine Specimen Cultured; RBC Urine None Seen (0-5/HPF); Squamous Epithelial Cell Urine None Seen (0-5/HPF); WBC Urine 1-5/HPF (0-5/HPF)
== END ==
PROVIDERS: Family Provider Internal Medicine; PCP Internal Medicine; Referring Provider Internal Medicine; Visit Provider Internal Medicine
DX: R10.32 Left lower quadrant pain (principal)
CPT/HCPCS: 81001; 87086

== ENCOUNTER → 2024-04-26 13:43 | Outpatient (CLI) | payer OTHER, SELFPAY ==
[2024-04-28 07:10] LABS: PSA Free % 21.3 % (.); PSA, Total 4.7 ng/mL (0.0-4.0)
== END ==
PROVIDERS: Family Provider Internal Medicine; PCP Internal Medicine; Referring Provider Urology; Visit Provider Urology
DX: R97.20 Elevated prostate specific antigen [PSA] (principal)
CPT/HCPCS: 36415; 84153; 84154

== ENCOUNTER → 2024-07-18 09:50 | Outpatient (CLI) | payer OTHER, SELFPAY ==
[2024-07-18 10:55] LABS: Hematocrit 44.5 % (41-53); Hemoglobin 15.2 g/dL (13.5-17.5); Mean Corpuscular HGB Conc 34.2 % (30-36); Mean Corpuscular Hemoglobin 32.2 PG (26-34); Mean Corpuscular Volume 94.1 fL (80-100); Platelet Count 185 X10^3/uL (150-400); Red Blood Cell Count 4.73 X10^6/uL (4.5-5.9); Red Cell Distribution Width 13.5 % (11.6-14.8); White Blood Cell Count 5.7 X10^3/uL (4.5-11.0)
[2024-07-18 11:27] LABS: Alanine Aminotransferase 43 IU/L (<50); Albumin 4.6 g/dL (3.5-5.0); Alkaline Phosphatase 48 U/L (38-126); Aspartate Aminotransferase 35 IU/L (17-59); BUN Creatinine Ratio 19.5 (6-22); Blood Urea Nitrogen 17 mg/dL (9-20); Calcium 9.7 mg/dL (8.4-10.2); Carbon Dioxide 27 mmol/L (22-32); Chloride 103 mmol/L (98-107); Cholesterol 212 mg/dL (140-199); Estimated Glomerular Filt Rate > 60 mL/min (>60); Globulin 2.3 g/dL (1.7-4.1); Glucose 71 mg/dL (70-99); HDL Cholesterol 92 mg/dL (40-60); HEMOLYSIS 31 (0-50); LDL Cholesterol Calculated 102 mg/dL (<100); Potassium 4.5 mmol/L (3.4-5.1); Sodium 138 mmol/L (137-145); Total Protein 6.9 g/dL (6.3-8.2); Triglycerides 92 mg/dL (35-150)
[2024-07-18 11:56] LABS: TSH w/ Reflex to FT4 0.65 uIU/mL (0.47-4.68)
== END ==
PROVIDERS: Family Provider Internal Medicine; PCP Internal Medicine; Referring Provider Internal Medicine; Visit Provider Internal Medicine
DX: Z00.00 Encounter for general adult medical examination without abnormal findings (principal); E78.2 Mixed hyperlipidemia; R73.01 Impaired fasting glucose
CPT/HCPCS: 36415; 80053; 80061; 83036; 84443; 85027